=== PATIENT | male | born 1965 | race Caucasian/White ===

== ENCOUNTER 2018-01-02 15:23 | Observation (INO) | payer OTHER ==
[2018-01-02] MEDS ORDERED: Sodium Chloride 0.9% 2.5 ML Syringe FLUSH PRN ×2 (15:29→18:49)
[2018-01-02] MEDS ORDERED: Sodium Chloride 0.9% 10 ML Syringe FLUSH PRN ×2 (15:29→18:49)
[2018-01-02] MEDS ORDERED: Nitroglycerin 2% Oint 1 GM UD Packet TOP ONE (15:29)
[2018-01-02] MEDS ORDERED: Enoxaparin 100 MG/1 ML Syringe SUBCUT ONE (15:29)
[2018-01-02] MEDS ORDERED: Aspirin 81 MG Tab.Chew PO ONE (15:29)
[2018-01-02] MEDS ORDERED: Sodium Chloride 0.9% 1,000 ML IV SCH (15:30)
--- NOTE | 2018-01-02 15:32 | EDM.PDOC ---
ED HPI GENERAL MEDICAL PROBLEM - General Chief Complaint: Respiratory Problem Stated Complaint: TROUBLE BREATHING Time Seen by Provider: 01/02/18 15:26 - History of Present Illness INITIAL COMMENTS - FREE TEXT/NARRATIVE: HISTORY AND PHYSICAL: History of present illness: Patient 52-year-old white male with history of pulmonary embolism in 2013 who states she's been off medications is not on aspirin or anticoagulants and presents today with shortness of breath and chest pain and somewhat intermittent over the last 24 hours and no associated palpitations diaphoresis nausea or vomiting. Review of systems: As per history of present illness and below otherwise all systems reviewed and negative. Past medical history: As per history of present illness and as reviewed below otherwise noncontributory. Surgical history: As per history of present illness and as reviewed below otherwise noncontributory. Social history: No reported history of drug or alcohol abuse. Family history: As per history of present illness and as reviewed below otherwise noncontributory. Physical exam: HEENT: Atraumatic, normocephalic, pupils reactive, negative for conjunctival pallor or scleral icterus, mucous membranes moist, throat clear, neck supple, nontender, trachea midline. Lungs: Clear to auscultation, breath sounds equal bilaterally, chest nontender. Heart: S1S2, regular, negative for clicks, rubs, or JVD. Abdomen: Soft, nondistended, nontender. Negative for masses or hepatosplenomegaly. Negative for costovertebral tenderness. Pelvis: Stable nontender. Genitourinary: Deferred. Rectal: Deferred. Extremities: Atraumatic, negative for cords or calf pain. Neurovascular unremarkable. Neuro: Awake, alert, oriented. Cranial nerves II through XII unremarkable. Cerebellum unremarkable. Motor and sensory unremarkable throughout. Exam nonfocal. Diagnostics: CBC CMP PT/INR troponin d-dimer BNP chest x-ray CT angios chest Therapeutics: IV O2 monitor aspirin 324 mg Lovenox 90 mg subcutaneous Nitropaste 1 inch Impression: #1 chest pain #2 history of pulmonary embolus Definitive disposition and diagnosis as appropriate pending reevaluation and review of above. chest Pain Score (Numeric/FACES): 5 - Related Data Allergies Allergy/AdvReac Type Severity Reaction Status Date / Time Penicillins Allergy Hives Verified 01/02/18 15:25 Home Meds: Home Meds . [No Known Home Meds] 01/02/18 [History] Past Medical History HEENT History: Reports: None Cardiovascular History: Reports: None Respiratory History: Reports: None Gastrointestinal History: Reports: None Genitourinary History: Reports: None Musculoskeletal History: Reports: None Neurological History: Reports: None Psychiatric History: Reports: None Endocrine/Metabolic History: Reports: None Hematologic History: Reports: Other (See Below) Other Hematologic History: DVT Immunologic History: Reports: None Oncologic (Cancer) History: Reports: None Dermatologic History: Reports: None - Past Surgical History Head Surgeries/Procedures: Reports: None HEENT Surgical History: Reports: None Cardiovascular Surgical History: Reports: None Respiratory Surgical History: Reports: None GI Surgical History: Reports: None Male Surgical History: Reports: None Endocrine Surgical History: Reports: None Neurological Surgical History: Reports: None Musculoskeletal Surgical History: Reports: None Oncologic Surgical History: Reports: None Dermatological Surgical History: Reports: None Social & Family History - Family History Family Medical History: Noncontributory - Tobacco Use Smoking Status *Q: Current Every Day Smoker Years of Tobacco use: 32 Packs/Tins Daily: 1 Used Tobacco, but Quit: No Second Hand Smoke Exposure: Yes - Caffeine Use Caffeine Use: Reports: Coffee - Alcohol Use Days Per Week of Alcohol Use: 2 Number of Drinks Per Day: 3 Total Drinks Per Week: 6 - Recreational Drug Use Recreational Drug Use: No Recreational Drug Type: Reports: Marijuana/Hashish Recreational Drug Use Frequency: Weekly ED ROS GENERAL - Review of Systems Review Of Systems: ROS reveals no pertinent complaints other than HPI. ED EXAM, GENERAL - Physical Exam Exam: See Below (See dictation) Course - Vital Signs Last Recorded V/S: Last Vital Signs Temp 36.5 C 01/02/18 15:26 Pulse 84 01/02/18 16:20 Resp 20 01/02/18 16:20 BP 116/79 01/02/18 16:20 Pulse Ox 94 L 01/02/18 16:20 - Orders/Labs/Meds Orders: Active Orders 24 hr Category Date Time Status Cardiac Monitoring [RC] . DIRECTED Care 01/02/18 15:28 Active EKG 12 Lead [EKG Documentation Completion] [RC] STAT Care 01/02/18 15:27 Active EKG Documentation Completion [RC] STAT Care 01/02/18 15:28 Active Oxygen Therapy, ED [RC] ASDIRECTED Care 01/02/18 15:28 Active Pulse Oximetry [RC] ASDIRECTED Care 01/02/18 15:28 Active Ang Chest [CT] Stat Exams 01/02/18 15:29 Taken INFLUENZA A+B AG SCREEN [RM] Stat Lab 01/02/18 17:52 Ordered Sodium Chloride 0.9% [Normal Saline] 1,000 ml Med 01/02/18 15:30 Active IV STAT Sodium Chloride 0.9% [Saline Flush] Med 01/02/18 15:29 Active 10 ml FLUSH ASDIRECTED PRN Sodium Chloride 0.9% [Saline Flush] Med 01/02/18 15:29 Active 2.5 ml FLUSH ASDIRECTED PRN Saline Lock Insert [OM.PC] Stat Oth 01/02/18 15:28 Ordered Medication Orders Sodium Chloride (Normal Saline) 1,000 mls @ 125 mls/hr IV STAT RENE Last Admin: 01/02/18 15:39 Dose: 125 mls/hr Sodium Chloride (Saline Flush) 10 ml FLUSH ASDIRECTED PRN PRN Reason: Keep Vein Open Last Admin: 01/02/18 15:39 Dose: 10 ml Sodium Chloride (Saline Flush) 2.5 ml FLUSH ASDIRECTED PRN PRN Reason: Keep Vein Open Last Admin: 01/02/18 15:39 Dose: 2.5 ml Labs: Laboratory Tests 01/02/18 01/02/18 01/02/18 Range/Units 15:26 15:26 15:26 WBC 9.42 (4.0-11.0) K/uL RBC 5.23 (4.50-5.90) M/uL Hgb 15.9 (13.0-17.0) g/dL Hct 46.8 (38.0-50.0) % MCV 89.5 (80.0-98.0) fL MCH 30.4 (27.0-32.0) pg MCHC 34.0 (31.0-37.0) g/dL RDW Std Deviation 46.6 (28.0-62.0) fl RDW Coeff of Clara 14 (11.0-15.0) % Plt Count 193 (150-400) K/uL MPV 10.30 (7.40-12.00) fL Neut % (Auto) 81.4 H (48.0-80.0) % Lymph % (Auto) 11.1 L (16.0-40.0) % Lea % (Auto) 6.1 (0.0-15.0) % Eos % (Auto) 1.3 (0.0-7.0) % Baso % (Auto) 0.1 (0.0-1.5) % Neut # (Auto) 7.7 H (1.4-5.7) K/uL Lymph # (Auto) 1.1 (0.6-2.4) K/uL Lea # (Auto) 0.6 (0.0-0.8) K/uL Eos # (Auto) 0.1 (0.0-0.7) K/uL Baso # (Auto) 0.0 (0.0-0.1) K/uL Nucleated RBC % 0.0 /100WBC Nucleated RBCs # 0 K/uL INR 1.04 D-Dimer, Quantitative 1.10 H (0.0-0.52) mg/LFEU Sodium 141 (136-148) mmol/L Potassium 3.8 (3.5-5.1) mmol/L Chloride 106 (98-107) mmol/L Carbon Dioxide 22.2 (21.0-32.0) mmol/L BUN 16 (7.0-18.0) mg/dL Creatinine 0.8 (0.8-1.3) mg/dL Est Cr Clr Drug Dosing 139.79 mL/min Estimated GFR (MDRD) > 60.0 ml/min Glucose 109 H (74-106) mg/dL Calcium 9.0 (8.5-10.1) mg/dL Total Bilirubin 0.5 (0.2-1.0) mg/dL AST 20 (15-37) IU/L ALT 16 (14-63) IU/L Alkaline Phosphatase 49 (46-116) U/L Troponin I < 0.050 (0.000-0.056) ng/mL B-Natriuretic Peptide (<100) PG/ML Total Protein 7.2 (6.4-8.2) g/dL Albumin 3.9 (3.4-5.0) g/dL Globulin 3.3 (2.0-3.5) g/dL Albumin/Globulin Ratio 1.2 L (1.3-2.8) 01/02/18 Range/Units 15:26 WBC (4.0-11.0) K/uL RBC (4.50-5.90) M/uL Hgb (13.0-17.0) g/dL Hct (38.0-50.0) % MCV (80.0-98.0) fL MCH (27.0-32.0) pg MCHC (31.0-37.0) g/dL RDW Std Deviation (28.0-62.0) fl RDW Coeff of Clara (11.0-15.0) % Plt Count (150-400) K/uL MPV (7.40-12.00) fL Neut % (Auto) (48.0-80.0) % Lymph % (Auto) (16.0-40.0) % Lea % (Auto) (0.0-15.0) % Eos % (Auto) (0.0-7.0) % Baso % (Auto) (0.0-1.5) % Neut # (Auto) (1.4-5.7) K/uL Lymph # (Auto) (0.6-2.4) K/uL Lea # (Auto) (0.0-0.8) K/uL Eos # (Auto) (0.0-0.7) K/uL Baso # (Auto) (0.0-0.1) K/uL Nucleated RBC % /100WBC Nucleated RBCs # K/uL INR D-Dimer, Quantitative (0.0-0.52) mg/LFEU Sodium (136-148) mmol/L Potassium (3.5-5.1) mmol/L Chloride (98-107) mmol/L Carbon Dioxide (21.0-32.0) mmol/L BUN (7.0-18.0) mg/dL Creatinine (0.8-1.3) mg/dL Est Cr Clr Drug Dosing mL/min Estimated GFR (MDRD) ml/min Glucose (74-106) mg/dL Calcium (8.5-10.1) mg/dL Total Bilirubin (0.2-1.0) mg/dL AST (15-37) IU/L ALT (14-63) IU/L Alkaline Phosphatase (46-116) U/L Troponin I (0.000-0.056) ng/mL B-Natriuretic Peptide 27 (<100) PG/ML Total Protein (6.4-8.2) g/dL Albumin (3.4-5.0) g/dL Globulin (2.0-3.5) g/dL Albumin/Globulin Ratio (1.3-2.8) Meds: Medications Generic Name Dose Route Start Last Admin Trade Name Freq PRN Reason Stop Dose Admin Sodium Chloride 1,000 mls @ 125 mls/hr 01/02/18 15:30 01/02/18 15:39 Normal Saline IV 125 mls/hr STAT RENE Administration Sodium Chloride 10 ml 01/02/18 15:29 01/02/18 15:39 Saline Flush FLUSH 10 ml ASDIRECTED PRN Administration Keep Vein Open Sodium Chloride 2.5 ml 01/02/18 15:29 01/02/18 15:39 Saline Flush FLUSH 2.5 ml ASDIRECTED PRN Administration Keep Vein Open Discontinued Medications Generic Name Dose Route Start Last Admin Trade Name Freq PRN Reason Stop Dose Admin Aspirin 324 mg 01/02/18 15:29 01/02/18 15:37 Aspirin PO 01/02/18 15:30 324 mg ONETIME ONE Administration Enoxaparin Sodium 90 mg 01/02/18 15:29 01/02/18 15:38 Lovenox SUBCUT 01/02/18 15:30 90 mg ONETIME ONE Administration Nitroglycerin 1 gm 01/02/18 15:29 01/02/18 15:38 Nitro-Bid 2% TOP 01/02/18 15:30 1 gm ONETIME ONE Administration Departure - Departure Time of Disposition: 17:53 Disposition: Refer to Observation Condition: Good Clinical Impression: Chest pain - Discharge Information Forms: ED Department Discharge - My Orders Last 24 Hours: My Active Orders 01/02/18 15:27 EKG 12 Lead [EKG Documentation Completion] [RC] STAT 01/02/18 15:28 Cardiac Monitoring [RC] . DIRECTED EKG Documentation Completion [RC] STAT Oxygen Therapy, ED [RC] ASDIRECTED Pulse Oximetry [RC] ASDIRECTED Saline Lock Insert [OM.PC] Stat 01/02/18 15:29 Ang Chest [CT] Stat Sodium Chloride 0.9% [Saline Flush] 10 ml FLUSH ASDIRECTED PRN Sodium Chloride 0.9% [Saline Flush] 2.5 ml FLUSH ASDIRECTED PRN 01/02/18 15:30 Sodium Chloride 0.9% [Normal Saline] 1,000 ml IV STAT 01/02/18 17:52 INFLUENZA A+B AG SCREEN [RM] Stat - Assessment/Plan Last 24 Hours: My Active Orders 01/02/18 15:27 EKG 12 Lead [EKG Documentation Completion] [RC] STAT 01/02/18 15:28 Cardiac Monitoring [RC] . DIRECTED EKG Documentation Completion [RC] STAT Oxygen Therapy, ED [RC] ASDIRECTED Pulse Oximetry [RC] ASDIRECTED Saline Lock Insert [OM.PC] Stat 01/02/18 15:29 Ang Chest [CT] Stat Sodium Chloride 0.9% [Saline Flush] 10 ml FLUSH ASDIRECTED PRN Sodium Chloride 0.9% [Saline Flush] 2.5 ml FLUSH ASDIRECTED PRN 01/02/18 15:30 Sodium Chloride 0.9% [Normal Saline] 1,000 ml IV STAT 01/02/18 17:52 INFLUENZA A+B AG SCREEN [RM] Stat
--- NOTE | 2018-01-02 16:03 | CR ---
EXAMINATION: Portable chest radiograph. HISTORY: Shortness of breath. FINDINGS: The trachea is midline. The cardiomediastinal silhouette is within normal limits. No pulmonary infilt rates, effusions or pneumothorax. Osseous structures appear unremarkable. IMPRESSION: No acute cardiopulmonary process.
[2018-01-02 16:11] LABS: CHLORIDE,CL 106 mmol/L (98-107); SODIUM,NA 141 mmol/L (136-148)
[2018-01-02] MEDS ORDERED: Morphine 4 MG/ML Syringe IVPUSH PRN (18:49)
[2018-01-02] MEDS ORDERED: Acetaminophen 325 MG Tab PO PRN (18:49)
[2018-01-02] MEDS ORDERED: Albuterol/Ipratropium 3.0-0.5 MG/3 ML Neb Soln NEB PRN (18:49)
[2018-01-02] MEDS ORDERED: Enoxaparin 40 MG/0.4 ML Syringe SUBCUT SCH (19:00)
[2018-01-02] MEDS ORDERED: Enoxaparin 100 MG/1 ML Syringe SUBCUT SCH (20:15)
[2018-01-02] MEDS ORDERED: Warfarin Sliding Scale PO SCH (20:15)
[2018-01-02] MEDS ORDERED: Warfarin 5 MG Tab PO ONE (20:45)
--- NOTE | 2018-01-02 23:31 | PCM.HP ---
H&P History of Present Illness - General Date of Service: 01/02/18 Admit Problem/Dx: Admission Diagnosis/Problem Admission Diagnosis/Problem Chest pain Source of Information: Patient, Provider History Limitations: Reports: No Limitations - History of Present Illness Initial Comments - Free Text/Narative: Patient 52 y old man with PMHx of PE in 2013 and later on DVT , on no anticoagulation, presented to hospital due to chest pain that started in the morning associated with some shortness of breath. Chest pain was localized left side of the chest radiating in the left shoulder and patient felt like a pulled muscle. Pain was 6/10 I , described as tightness , worse with breathing , pain is there all the time. He is not on any anticoagulation for the past 5 y because he could not afford the Lovenox. 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 Has cough productive of green phlegm for the past few days chest Pain Score (Numeric/FACES): 5 - Related Data Allergies/Adverse Reactions: Allergies Allergy/AdvReac Type Severity Reaction Status Date / Time Penicillins Allergy Hives Verified 01/02/18 15:25 Home Medications: Home Meds Azithromycin [IJP: Azithromycin] 250 mg PO DAILY #6 tab 01/03/18 [Rx] Warfarin Sliding Scale [Coumadin Sliding Scale] 5 each PO DAILY #30 tablet 01/03 [Rx] Past Medical History HEENT History: Reports: None Cardiovascular History: Reports: None Respiratory History: Reports: None Gastrointestinal History: Reports: None Genitourinary History: Reports: None Musculoskeletal History: Reports: None Neurological History: Reports: None Psychiatric History: Reports: None Endocrine/Metabolic History: Reports: None Hematologic History: Reports: Other (See Below) Other Hematologic History: DVT in left leg in 2010 Immunologic History: Reports: None Oncologic (Cancer) History: Reports: None Dermatologic History: Reports: None - Infectious Disease History Infectious Disease History: Reports: Chicken Pox, Mumps - Past Surgical History Head Surgeries/Procedures: Reports: None HEENT Surgical History: Reports: None Cardiovascular Surgical History: Reports: None Respiratory Surgical History: Reports: None GI Surgical History: Reports: None Male Surgical History: Reports: None Endocrine Surgical History: Reports: None Neurological Surgical History: Reports: None Musculoskeletal Surgical History: Reports: None Oncologic Surgical History: Reports: None Dermatological Surgical History: Reports: None Social & Family History - Family History Family Medical History: Noncontributory - Tobacco Use Smoking Status *Q: Former Smoker Years of Tobacco use: 31 Packs/Tins Daily: 1 Used Tobacco, but Quit: No Second Hand Smoke Exposure: Yes - Caffeine Use Caffeine Use: Reports: Coffee - Alcohol Use Days Per Week of Alcohol Use: 2 Number of Drinks Per Day: 3 Total Drinks Per Week: 6 - Recreational Drug Use Recreational Drug Use: Yes Drug Use in Last 12 Months: Yes Recreational Drug Type: Reports: Marijuana/Hashish Recreational Drug Use Frequency: Socially H&P Review of Systems - Review of Systems: Review Of Systems: See Below General: Reports: No Symptoms HEENT: Reports: No Symptoms Pulmonary: Reports: Shortness of Breath, Cough Cardiovascular: Reports: Chest Pain Gastrointestinal: Reports: No Symptoms Genitourinary: Reports: No Symptoms Musculoskeletal: Reports: No Symptoms Skin: Reports: No Symptoms Psychiatric: Reports: No Symptoms Neurological: Reports: No Symptoms Hematologic/Lymphatic: Reports: No Symptoms Immunologic: Reports: No Symptoms Exam - Exam Exam: See Below - Vital Signs Vital Signs: Last Vital Signs Temp 100.2 F 01/02/18 20:00 Pulse 69 01/02/18 20:00 Resp 19 01/02/18 20:00 BP 104/69 01/02/18 20:00 Pulse Ox 92 L 01/02/18 20:00 Weight: 203 lb 0.732 oz - Exam General: Alert, Oriented HEENT: Conjunctiva Clear, EACs Clear, Mucosa Moist & [place] Neck: Supple, Trachea Midline Lungs: Clear to Auscultation, Normal Respiratory Effort Cardiovascular: Regular Rate, Regular Rhythm, Normal S1, Normal S2 GI/Abdominal Exam: Normal Bowel Sounds, Soft, Non-Tender, No Organomegaly, No Distention, No Abnormal Bruit Back Exam: Normal Inspection Extremities: Normal Inspection Skin: Warm, Dry Neurological: Cranial Nerves Intact Neuro Extensive - Mental Status: Alert, Oriented x3 Neuro Extensive - Motor, Sensory, Reflexes: CN II-XII Intact Psychiatric: Alert, Normal Affect - Patient Data Lab Results Last 24 hrs: Laboratory Results - last 24 hr 01/02/18 01/02/18 01/02/18 Range/Units 15:26 15:26 15:26 WBC 9.42 (4.0-11.0) K/uL RBC 5.23 (4.50-5.90) M/uL Hgb 15.9 (13.0-17.0) g/dL Hct 46.8 (38.0-50.0) % MCV 89.5 (80.0-98.0) fL MCH 30.4 (27.0-32.0) pg MCHC 34.0 (31.0-37.0) g/dL RDW Std Deviation 46.6 (28.0-62.0) fl RDW Coeff of Clara 14 (11.0-15.0) % Plt Count 193 (150-400) K/uL MPV 10.30 (7.40-12.00) fL Neut % (Auto) 81.4 H (48.0-80.0) % Lymph % (Auto) 11.1 L (16.0-40.0) % [place] % (Auto) 6.1 (0.0-15.0) % Eos % (Auto) 1.3 (0.0-7.0) % Baso % (Auto) 0.1 (0.0-1.5) % Neut # (Auto) 7.7 H (1.4-5.7) K/uL Lymph # (Auto) 1.1 (0.6-2.4) K/uL [place] # (Auto) 0.6 (0.0-0.8) K/uL Eos # (Auto) 0.1 (0.0-0.7) K/uL Baso # (Auto) 0.0 (0.0-0.1) K/uL Nucleated RBC % 0.0 /100WBC Nucleated RBCs # 0 K/uL INR 1.04 D-Dimer, Quantitative 1.10 H (0.0-0.52) mg/LFEU Sodium 141 (136-148) mmol/L Potassium 3.8 (3.5-5.1) mmol/L Chloride 106 (98-107) mmol/L Carbon Dioxide 22.2 (21.0-32.0) mmol/L BUN 16 (7.0-18.0) mg/dL Creatinine 0.8 (0.8-1.3) mg/dL Est Cr Clr Drug Dosing 139.79 mL/min Estimated GFR (MDRD) > 60.0 ml/min Glucose 109 H (74-106) mg/dL Calcium 9.0 (8.5-10.1) mg/dL Total Bilirubin 0.5 (0.2-1.0) mg/dL AST 20 (15-37) IU/L ALT 16 (14-63) IU/L Alkaline Phosphatase 49 (46-116) U/L Troponin I < 0.050 (0.000-0.056) ng/mL B-Natriuretic Peptide (<100) PG/ML Total Protein 7.2 (6.4-8.2) g/dL Albumin 3.9 (3.4-5.0) g/dL Globulin 3.3 (2.0-3.5) g/dL Albumin/Globulin Ratio 1.2 L (1.3-2.8) 01/02/18 01/02/18 01/02/18 Range/Units 15:26 20:23 20:23 WBC (4.0-11.0) K/uL RBC (4.50-5.90) M/uL Hgb (13.0-17.0) g/dL Hct (38.0-50.0) % MCV (80.0-98.0) fL MCH (27.0-32.0) pg MCHC (31.0-37.0) g/dL RDW Std Deviation (28.0-62.0) fl RDW Coeff of Clara (11.0-15.0) % Plt Count (150-400) K/uL MPV (7.40-12.00) fL Neut % (Auto) (48.0-80.0) % Lymph % (Auto) (16.0-40.0) % [place] % (Auto) (0.0-15.0) % Eos % (Auto) (0.0-7.0) % Baso % (Auto) (0.0-1.5) % Neut # (Auto) (1.4-5.7) K/uL Lymph # (Auto) (0.6-2.4) K/uL [place] # (Auto) (0.0-0.8) K/uL Eos # (Auto) (0.0-0.7) K/uL Baso # (Auto) (0.0-0.1) K/uL Nucleated RBC % /100WBC Nucleated RBCs # K/uL INR 1.06 D-Dimer, Quantitative (0.0-0.52) mg/LFEU Sodium (136-148) mmol/L Potassium (3.5-5.1) mmol/L Chloride (98-107) mmol/L Carbon Dioxide (21.0-32.0) mmol/L BUN (7.0-18.0) mg/dL Creatinine (0.8-1.3) mg/dL Est Cr Clr Drug Dosing mL/min Estimated GFR (MDRD) ml/min Glucose (74-106) mg/dL Calcium (8.5-10.1) mg/dL Total Bilirubin (0.2-1.0) mg/dL AST (15-37) IU/L ALT (14-63) IU/L Alkaline Phosphatase (46-116) U/L Troponin I < 0.050 (0.000-0.056) ng/mL B-Natriuretic Peptide 27 (<100) PG/ML Total Protein (6.4-8.2) g/dL Albumin (3.4-5.0) g/dL Globulin (2.0-3.5) g/dL Albumin/Globulin Ratio (1.3-2.8) Result Diagrams: 01/02/18 15:26 01/02/18 15:26 Kapil Results Last 24 hrs: Microbiology 01/02/18 17:55 Influenza Type A Antigen Screen - Final Nasopharyngeal Swab NEGATIVE INFLUENZA A VIRUS AG Influenza Type B Antigen Screen - Final NEGATIVE INFLUENZA B VIRUS AG Imaging Impressions Last 24 hrs: CtPA show no PE , thickening of a bronchial wall. EKG INTERPRETATION Rhythm: NSR ST-T: Elevated - Problem List (1) Bronchitis SNOMED Code(s): 06163203 ICD Code: J40 - BRONCHITIS, NOT SPECIFIED ACUTE OR CHRONIC Status: Acute (2) Chest pain SNOMED Code(s): 17639540 ICD Code: R07.9 - CHEST PAIN, UNSPECIFIED Status: Acute (3) Tobacco abuse disorder SNOMED Code(s): 441443814 ICD Code: Z72.0 - TOBACCO USE Status: Acute (4) Tobacco abuse counseling SNOMED Code(s): 518294542, 306620519, 287407159 ICD Code: Z71.6 - TOBACCO ABUSE COUNSELING Status: Acute (5) History of pulmonary embolus (PE) SNOMED Code(s): 245599901 ICD Code: Z86.711 - PERSONAL HISTORY OF PULMONARY EMBOLISM Status: Acute (6) History of DVT in adulthood SNOMED Code(s): 700271396 ICD Code: Z86.718 - PERSONAL HISTORY OF OTHER VENOUS THROMBOSIS AND EMBOLISM Status: Acute Problem List Initiated/Reviewed/Updated: Yes Orders Last 24hrs: Active Orders 24 hr Category Date Time Status Patient Status [ADT] Routine ADT 01/02/18 18:49 Active Patient Status [ADT] Stat ADT 01/02/18 17:53 Active Cardiac Monitoring [RC] Q8H Care 01/02/18 15:28 Active RT Aerosol Therapy [RC] ASDIRECTED Care 01/02/18 18:53 Active Telemetry Monitoring [Cardiac Monitoring] [RC] . Care 01/02/18 18:04 Active DIRECTED Up ad Dolly [RC] ASDIRECTED Care 01/02/18 18:49 Active VTE/DVT Education [RC] PER UNIT ROUTINE Care 01/02/18 18:49 Active Vital Signs [RC] Q4H Care 01/02/18 18:49 Active 2 Gram Sodium Diet [DIET] Diet 01/02/18 Dinner Active Ang Chest [CT] Stat Exams 01/02/18 15:29 Taken INFLUENZA A+B AG SCREEN [RM] Stat Lab 01/02/18 17:55 Ordered INR,PT,PROTHROMBIN TIME [COAG] Routine Lab 01/03/18 05:00 Ordered TROPONIN I [CHEM] Routine Lab 01/03/18 03:00 Ordered Acetaminophen [Tylenol] Med 01/02/18 18:49 Active 650 mg PO Q4H PRN Albuterol/Ipratropium [DuoNeb 3.0-0.5 MG/3 ML] Med 01/02/18 18:49 Active 3 ml NEB Q4HRRT PRN Enoxaparin [Lovenox] Med 01/03/18 03:00 Active 90 mg SUBCUT Q12H Morphine Med 01/02/18 18:49 Active 2 mg IVPUSH Q2H PRN Sodium Chloride 0.9% [Normal Saline] 1,000 ml Med 01/02/18 15:30 Active IV STAT Sodium Chloride 0.9% [Saline Flush] Med 01/02/18 15:29 Active 10 ml FLUSH ASDIRECTED PRN Sodium Chloride 0.9% [Saline Flush] Med 01/02/18 18:49 Active 10 ml FLUSH ASDIRECTED PRN Sodium Chloride 0.9% [Saline Flush] Med 01/02/18 15:29 Active 2.5 ml FLUSH ASDIRECTED PRN Sodium Chloride 0.9% [Saline Flush] Med 01/02/18 18:49 Active 2.5 ml FLUSH ASDIRECTED PRN Warfarin Sliding Scale [Coumadin Sliding Scale] Med 01/02/18 20:15 Pending 5 each PO .Pharmacy To Dose Peripheral IV Insertion Adult [OM.PC] Routine Oth 01/02/18 18:49 Ordered Saline Lock Insert [OM.PC] Stat Oth 01/02/18 15:28 Ordered Resuscitation Status Routine Resus Stat 01/02/18 18:49 Ordered Medication Orders Acetaminophen (Tylenol) 650 mg PO Q4H PRN PRN Reason: Pain (Mild 1-3)/fever Albuterol/Ipratropium (Duoneb 3.0-0.5 Mg/3 Ml) 3 ml NEB Q4HRRT PRN PRN Reason: Shortness Of Breath/wheezing Enoxaparin Sodium (Lovenox) 90 mg 1 mg/kg (90 mg) SUBCUT Q12H RENE Sodium Chloride (Normal Saline) 1,000 mls @ 125 mls/hr IV STAT RENE Last Admin: 01/02/18 15:39 Dose: 125 mls/hr Morphine Sulfate (Morphine) 2 mg IVPUSH Q2H PRN PRN Reason: Pain (severe 7-10) Stop: 01/03/18 18:52 Sodium Chloride (Saline Flush) 10 ml FLUSH ASDIRECTED PRN PRN Reason: Keep Vein Open Last Admin: 01/02/18 15:39 Dose: 10 ml Sodium Chloride (Saline Flush) 2.5 ml FLUSH ASDIRECTED PRN PRN Reason: Keep Vein Open Last Admin: 01/02/18 15:39 Dose: 2.5 ml Sodium Chloride (Saline Flush) 10 ml FLUSH ASDIRECTED PRN PRN Reason: Keep Vein Open Sodium Chloride (Saline Flush) 2.5 ml FLUSH ASDIRECTED PRN PRN Reason: Keep Vein Open Warfarin Sodium (Coumadin Sliding Scale) 5 each PO .Pharmacy To Dose RENE Assessment/Plan Comment:: A/P CHEST PAIN atypical R/O ACS -will admit patient to telemetry , f/up cardiac enzymes , aspirin 325 mg po daily , lipid profile , hemoglobin A1c History of PE and DVD- start Lovenox 1mg/kg q12h , start Coumadin 5 mg po daily , social work referral for patient to receive medical insurance Patient needs to be on lifelong anticoagulation Bronchitis- probable from chronic tobacco abuse - will start patient on azithromycin 500 mg po daily for 3 days , cough syrup Tobacco abuse- patient was counseled for more than 5 minutes to stop smoking
[2018-01-03] MEDS ORDERED: Enoxaparin 100 MG/1 ML Syringe SUBCUT SCH (03:00)
--- NOTE | 2018-01-03 09:18 | CT ---
EXAM DATE: 01/02/18 PATIENT'S AGE: 52 Patient: MONROE FIELDS Facility: [place], [place] Site . Site : 1965 Study: CT Chest Angio [id number]/18/2018 5:10:07 PM Ordering Physician: Eliz Liao Final Report: HISTORY: Shortness of breath, chest pain and chills. TECHNIQUE: The chest was scanned using helical technique at 1 mm after 50 cc of Isovue- 370. Sagittal and coronal reconstructions were performed. FINDINGS: Existent and ronan: The thyroid is unremarkable. Multiple small mediastinal lymph nodes are present. No pathologic mediastinal or hilar lymphadenopathy is seen. Cardiovascular structures: No pulmonary embolus identified. The thoracic aorta is normal in caliber. No dissection. The heart is normal in size. No pericardial effusion. Lungs and pleura: No consolidation is seen. Dependent atelectasis in the posterior lungs. An azygos lobe is present. No pleural effusion. The trachea and major bronchi are patent. Mild bronchial wall thickening is present. Chest wall: No pathologic axillary lymphadenopathy. No chest wall mass. Upper abdomen: The spleen is enlarged at 15.5 cm AP diameter. A splenule is present. The bones are normal. The visualized pancreatic parenchyma is unremarkable. Osseous structures: Vertebral body heights are maintained. Degenerative changes of the discs. IMPRESSION: 1. No pulmonary embolus is identified. 2. Thoracic aorta is normal in caliber and free of dissection. 3. Mild dependent atelectasis in the posterior lungs. There is mild bronchial wall thickening in the lower lungs suggesting inflammation or bronchitis. 4. Splenomegaly. Dictated by Scarlet Billingsley MD @ 01/02/2018 5:44:55 PM Please note that all CT scans at this facility use dose modulation, iterative reconstruction, and/or weight-based dosing when appropriate to reduce radiation dose to as low as reasonably achievable. Dictated by: Scarlet Billingsley MD @ 01/02/2018 17:47:47 (Electronic Signature) Report Signed by Proxy. [facility]
[2018-01-03 09:40] VITALS: BP 122/70
--- NOTE | 2018-01-04 16:54 | PCM.DCSUM1 ---
Discharge Summary - Hospital Course Free Text/Narrative:: Patient 52 y old man with past medical history of blood cloths presented to hospital because of chest pain that started in the morning , pleuritic that felt like a pulled muscle . Pain was there all the time , 5-6/10 intensity , radiating in the left shoulder .CTPA done in [place] was negative for acute PE but showed bronchial thickening . Patient had PE in the past and later on he had DVT and he is supposed to be on lifelong anticoagulation but for the past 5 years he was off anticoagulation because he could not afford it. He is a heavy smoker and has cough productive of green phlegm and occasional wheezing. He was admitted in the hospital with the diagnosis of chest pain rule out ACS , had 3 sets of cardiac enzymes negative and he was started on lovenox 1 mg /kg q12 h and coumadin 5 mg po daily , f/up with [facility].For bronchitis patient was given azithromycin po . - Discharge Data Discharge Date: 01/03/18 Discharge Disposition: Home, Self-Care 01 Condition: Fair - Discharge Diagnosis/Problem(s) (1) Bronchitis SNOMED Code(s): 75356149 ICD Code: J40 - BRONCHITIS, NOT SPECIFIED ACUTE OR CHRONIC Status: Acute (2) Chest pain SNOMED Code(s): 34279473 ICD Code: R07.9 - CHEST PAIN, UNSPECIFIED Status: Acute (3) Tobacco abuse disorder SNOMED Code(s): 618069151 ICD Code: Z72.0 - TOBACCO USE Status: Acute (4) Tobacco abuse counseling SNOMED Code(s): 255719412, 978451448, 817740083 ICD Code: Z71.6 - TOBACCO ABUSE COUNSELING Status: Acute (5) History of pulmonary embolus (PE) SNOMED Code(s): 248011108 ICD Code: Z86.711 - PERSONAL HISTORY OF PULMONARY EMBOLISM Status: Acute (6) History of DVT in adulthood SNOMED Code(s): 105716589 ICD Code: Z86.718 - PERSONAL HISTORY OF OTHER VENOUS THROMBOSIS AND EMBOLISM Status: Acute - Patient Instructions Diet: Heart Healthy Diet Activity: As Tolerated Driving: May Drive Today Showering/Bathing: May Shower Notify Provider of: Fever, Increased Pain, Nausea and/or Vomiting - Discharge Plan Prescriptions/Med Rec: Azithromycin [IJP: Azithromycin] 250 mg PO DAILY #6 tab Warfarin Sliding Scale [Coumadin Sliding Scale] 5 each PO DAILY #30 tablet Home Medications: Home Meds Azithromycin [IJP: Azithromycin] 250 mg PO DAILY #6 tab 01/03/18 [Rx] Warfarin Sliding Scale [Coumadin Sliding Scale] 5 each PO DAILY #30 tablet 01/03 [Rx] Patient Handouts: Exercise Stress Echocardiogram, Care After, [id number], Exercise Stress Electrocardiogram, [id number], Warfarin tablets, Azithromycin tablets, Nonspecific Chest Pain, [id number] Referrals: Ollie Pinedo MD [Resident] - 01/14/18 2:30 pm - Discharge Summary/Plan Comment DC Time >30 min.: Yes - General Info Date of Service: 01/03/18 Admission Dx/Problem (Free Text: Admission Diagnosis/Problem Admission Diagnosis/Problem Chest pain - Review of Systems General: Reports: No Symptoms HEENT: Reports: No Symptoms Pulmonary: Reports: Cough, Sputum Cardiovascular: Reports: No Symptoms Gastrointestinal: Reports: No Symptoms Genitourinary: Reports: No Symptoms Musculoskeletal: Reports: No Symptoms Skin: Reports: No Symptoms Neurological: Reports: No Symptoms Psychiatric: Reports: No Symptoms - Patient Data Vitals - Most Recent: Last Vital Signs Temp 99.0 F 01/03/18 04:00 Pulse 78 01/03/18 08:00 Resp 16 01/03/18 08:00 BP 122/70 01/03/18 08:00 Pulse Ox 95 01/03/18 08:00 Weight - Most Recent: 203 lb 0.732 oz Med Orders - Current: Current Medications Discontinued Medications Acetaminophen (Tylenol) 650 mg PO Q4H PRN PRN Reason: Pain (Mild 1-3)/fever Albuterol/Ipratropium (Duoneb 3.0-0.5 Mg/3 Ml) 3 ml NEB Q4HRRT PRN PRN Reason: Shortness Of Breath/wheezing Aspirin (Aspirin) 324 mg PO ONETIME ONE Stop: 01/02/18 15:30 Last Admin: 01/02/18 15:37 Dose: 324 mg Enoxaparin Sodium (Lovenox) 90 mg SUBCUT ONETIME ONE Stop: 01/02/18 15:30 Last Admin: 01/02/18 15:38 Dose: 90 mg Enoxaparin Sodium (Lovenox) 40 mg SUBCUT Q24H [facility] Last Admin: 01/02/18 20:46 Dose: Not Given Enoxaparin Sodium (Lovenox) 90 mg 1 mg/kg (90 mg) SUBCUT Q12H [facility] Enoxaparin Sodium (Lovenox) 90 mg 1 mg/kg (90 mg) SUBCUT Q12H [facility] Last Admin: 01/03/18 03:16 Dose: 90 mg Sodium Chloride (Normal Saline) 1,000 mls @ 125 mls/hr IV STAT [facility] Last Infusion: 01/03/18 00:03 Dose: Infused Morphine Sulfate (Morphine) 2 mg IVPUSH Q2H PRN PRN Reason: Pain (severe 7-10) Stop: 01/03/18 18:52 Nitroglycerin (Nitro-Bid 2%) 1 gm TOP ONETIME ONE Stop: 01/02/18 15:30 Last Admin: 01/02/18 15:38 Dose: 1 gm Sodium Chloride (Saline Flush) 10 ml FLUSH ASDIRECTED PRN PRN Reason: Keep Vein Open Last Admin: 01/02/18 15:39 Dose: 10 ml Sodium Chloride (Saline Flush) 2.5 ml FLUSH ASDIRECTED PRN PRN Reason: Keep Vein Open Last Admin: 01/02/18 15:39 Dose: 2.5 ml Sodium Chloride (Saline Flush) 10 ml FLUSH ASDIRECTED PRN PRN Reason: Keep Vein Open Sodium Chloride (Saline Flush) 2.5 ml FLUSH ASDIRECTED PRN PRN Reason: Keep Vein Open Warfarin Sodium (Coumadin Sliding Scale) 5 each PO .Pharmacy To Dose [facility] Warfarin Sodium (Coumadin) 5 mg PO ONETIME ONE Stop: 01/02/18 20:46 Last Admin: 01/02/18 21:17 Dose: 5 mg - Exam General: Reports: Alert, Oriented HEENT: Reports: Pupils Equal, Pupils Reactive Neck: Reports: Supple, Trachea Midline, No JVD Lungs: Reports: Clear to Auscultation, Normal Respiratory Effort Cardiovascular: Reports: Regular Rate, Regular Rhythm, No Murmurs GI/Abdominal Exam: Normal Bowel Sounds, Soft, Non-Tender, No Organomegaly Extremities: Normal Inspection Skin: Reports: Warm, Dry Wound/Incisions: Reports: Healing Well Neurological: Reports: No New Focal Deficit Psy/Mental Status: Reports: Alert, Normal Affect, Normal Mood
== END 2018-01-03 10:30 | disposition home or self-care (01) ==
LOC: MW.ED 15:23 → MW.MS 17:53
PROVIDERS: ADMIT Internal Medicine; ATTEND Internal Medicine
DX: R07.89 Other chest pain (principal); J40 Bronchitis, not specified as acute or chronic; F17.210 Nicotine dependence, cigarettes, uncomplicated; Z79.01 Long term (current) use of anticoagulants; Z86.711 Personal history of pulmonary embolism; Z86.718 Personal history of other venous thrombosis and embolism; Z79.899 Other long term (current) drug therapy; Z88.0 Allergy status to penicillin
CPT/HCPCS: 36415; 71045; 71275; 80053; 83880; 84484; 85025; 85379; 85610; 87804; 93005; 96360; 96361; 96372; 99285; A9270; J1650; J7040; G0378

== ENCOUNTER 2020-07-23 03:09 | Inpatient (IN) | payer MEDICAID ==
[2020-07-23 03:59] LABS: BLOOD UREA NITROGEN,BUN 21 mg/dL (7.0-18.0); CARBON DIOXIDE,CO2 26.2 mmol/L (21.0-32.0); CHLORIDE,CL 103 mmol/L (98-107); GLUCOSE RANDOM 119 mg/dL (74-106); POTASSIUM,K 4.6 mmol/L (3.5-5.1); SODIUM,NA 139 mmol/L (136-148)
--- NOTE | 2020-07-23 05:07 | US ---
INDICATION: Right leg pain TECHNIQUE: Ultrasound venous duplex lower extremity bilateral. Compression venous exam was performed using zarate-scale, color Doppler, and spectral Doppler imaging. COMPARISON: None. FINDINGS: On the left there is echogenic thrombus throughout the left lower extremity at the common femoral vein extending to the femoral vein, popliteal vein, posterior tibial and anterior tibial veins. These are all noncompressible. Similar findings are present on the right with extensive echogenic material within the veins which are expanded extending from the common femoral through the femoral and the popliteal posterior tibial and anterior tibial veins. IMPRESSION: Extensive occlusive acute deep venous thrombosis involving the length of the bilateral lower extremities from the common femoral vein into the calf as above. Results called to Dr. Murcia at 0503 on 07/23/2020 Dictated by Buddy Lopez MD @ Jul 23 2020 4:59AM Signed by Dr. Buddy Lopez @ Jul 23 2020 5:04AM
[2020-07-23] MEDS ORDERED: Enoxaparin 150 MG/1 ML Syringe SUBCUT STA (05:25)
--- NOTE | 2020-07-23 05:47 | EDM.PDOC ---
<Rodrigue Flores - Last Filed: 07/23/20 09:47> ED HPI GENERAL MEDICAL PROBLEM - General Chief Complaint: Lower Extremity Injury/Pain Stated Complaint: BLOOD CLOTS IN RIGHT LEG Time Seen by Provider: 07/23/20 03:12 - Related Data Allergies Allergy/AdvReac Type Severity Reaction Status Date / Time Penicillins Allergy Hives Verified 07/23/20 09:10 Home Meds: Home Meds . [No Known Home Meds] 07/23/20 [History] Review of Systems - Review of Systems Review Of Systems: Comprehensive ROS is negative, except as noted in HPI. Departure - Departure Time of Disposition: 08:35 Disposition: Admitted As Inpatient 66 Condition: Good Clinical Impression: Pulmonary embolism - Discharge Information - Assessment/Plan Plan: Patient admitted with PE, otherwise hemodynamically stable and has no chest pain or SOB. received lovenox here. evidence of mild right heart strain on CT. 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 The patient states that for a couple of days now he has been experiencing pain in his right lower extremity. He states that he felt a pop and thought it was likely a muscle strain however the pain has increased. He states that this feels similar to when he had a DVT in his left lower extremity. He states that he had an extensive work-up in [place] as his last DVT of his lower extremity was unprovoked and then he had a recurrence of this DVT when he moved to [place]. He denies any numbness, tingling, or weakness. He denies any recent travel, recent surgery. He denies any injury to this right lower extremity. He denies any rash or skin changes. REVIEW OF SYSTEMS: Constitutional: Denies fever, chills. Eyes: Denies eye pain Ears, Nose, Mouth, & Throat: Denies earache Cardiovascular: Denies chest pain Respiratory: Denies shortness of breath Gastrointestinal: Denies Nausea, vomiting, diarrhea, hematochezia. Genitourinary: Denies hematuria MSK: Positive for right lower extremity pain Neurological: Denies blurred vision, numbness, tingling Psychiatric: Denies depression PAST MEDICAL HISTORY: As per history of present illness and as reviewed below otherwise noncontributory. SURGICAL HISTORY: As per history of present illness and as reviewed below otherwise noncontributory. SOCIAL HISTORY: As per history of present illness and as reviewed below otherwise noncontributory. FAMILY HISTORY: As per history of present illness and as reviewed below otherwise noncontributory. EXAMINATION OF ORGAN SYSTEMS/BODY AREAS: Constitutional: Blood pressure was 134/89, heart rate 94, respiratory rate 18 with an oxygen saturation 97% on room air. Temperature 36.1 General: Overall well-appearing man who is in no acute distress Psychiatric: Appropriate mood and affect. Eyes: No scleral icterus or conjunctival erythema ENMT: Moist mucous membranes. No pharyngeal erythema Cardiovascular: Regular, rate, and rhythm. No gallops, murmurs, or rubs. Bilateral upper and lower extremity pulses are symmetric and intact. There is no obvious peripheral edema. No JVD. Respiratory: Lungs clear to auscultation bilaterally. No wheezes, rales, or rhonchi. Gastrointestinal: Soft, non-tender, non-distended. Normoactive bowel sounds Genitourinary: No suprapubic tenderness Musculoskeletal: Normal range of motion. There is tenderness to palpation along the posterior calf and medial thigh on the right lower extremity. The left lower extremity is nontender. There does not appear to be any swelling. No deformity Skin: No lesions or abrasions. Neurological: Alert, GCS 15 distal sensation is intact. MEDICAL DECISION MAKING AND COURSE IN THE ED WITH INTERPRETATION/REVIEW OF DIAGNOSTIC STUDIES: This is a 55-year-old man with a past medical history of prior unprovoked DVT with an extensive work-up who comes to the emergency department with right lower extremity pain which is similar to his left lower extremity DVT in the past who is neurovascularly intact. At this time I did perform a bedside ultrasound to evaluate for popliteal DVT. On my bedside ultr asound there did appear to be clot with a noncompressible vein in the popliteal region. Therefore at this time will obtain duplex ultrasonography of bilateral lower extremities. Will obtain basic labs including CBC, BMP, and coags. Laboratory: CBC reveals a leukocytosis of 13.0 and thrombocytopenia at 149. Coags are within normal limits. BMP reveals no abnormality except for hyperglycemia at 119. The radiological images were viewed by myself along with reading the report from the radiologist. Bilateral lower extremity venous duplex reveals evidence of extensive acute DVT involving the length of the bilateral lower extremity from the common femoral vein into the calf. Given the degree of clot burden on ultrasonography and given that the patient is tachycardiac I am concerned about the possibility of extension of these clots into the IVC versus pulmonary embolism. We decided at this time that we would obtain CT PE and CTA of the abdomen to evaluate. I did provide the patient with Lovenox subcutaneously. Also obtain a coronavirus swab as this patient will likely need admission or transfer. COVID-19 is negative. Twelve-lead EKG interpreted by myself. Normal sinus rhythm at a rate of 80beats per minute. Normal axis. [place] interval is 157ms. QRS duration is 101ms. ST segments are normal without elevations or depressions. No Q waves present. Hypertrophy not noted. No prior EKGs. Interpretation: Normal sinus rhythm [facility]POSITION: [facility] final read of CT PE and disposition CONDITION: Serious PROCEDURES: None FINAL IMPRESSION(S)/DIAGNOSES: 1. Acute bilateral lower extremity DVT Fede Murcia M.D. right leg Pain Score (Numeric/FACES): 9 Past Medical History HEENT History: Reports: None Cardiovascular History: Reports: None Respiratory History: Reports: None Gastrointestinal History: Reports: None Genitourinary History: Reports: None Musculoskeletal History: Reports: None Neurological History: Reports: None Psychiatric History: Reports: None Endocrine/Metabolic History: Reports: None Insulin Pump Model and Handle And Vent Machine Operator: None Hematologic History: Reports: Other (See Below) Other Hematologic History: DVT in left leg in 2010 Immunologic History: Reports: None Oncologic (Cancer) History: Reports: None Dermatologic History: Reports: None - Infectious Disease History Infectious Disease History: Reports: None - Past Surgical History Head Surgeries/Procedures: Reports: None HEENT Surgical History: Reports: None Cardiovascular Surgical History: Reports: None Respiratory Surgical History: Reports: None GI Surgical History: Reports: None Male Surgical History: Reports: None Endocrine Surgical History: Reports: None Neurological Surgical History: Reports: None Musculoskeletal Surgical History: Reports: None Oncologic Surgical History: Reports: None Dermatological Surgical History: Reports: None Social & Family History - Family History Family Medical History: Noncontributory - Tobacco Use Tobacco Use Status *Q: Current Every Day Tobacco User Years of Tobacco use: 30 Packs/Tins Daily: 0.5 - Caffeine Use Caffeine Use: Reports: Coffee - Recreational Drug Use Recreational Drug Use: No Review of Systems - Review of Systems Review Of Systems: See Below ED EXAM, GENERAL - Physical Exam Exam: See Below Course - Vital Signs Last Recorded V/S: Last Vital Signs Temp 36.3 C 07/23/20 16:00 Pulse 88 07/23/20 16:00 Resp 22 H 07/23/20 16:00 BP 113/80 07/23/20 16:00 Pulse Ox 96 07/23/20 16:00 - Orders/Labs/Meds Orders: Active Orders 24 hr Category Date Time Status CTA Abd Pelv w Cont [CT] Stat Exams 07/23/20 04:34 Taken Medication Orders Acetaminophen (Tylenol) 650 mg PO Q4H PRN PRN Reason: Pain (Mild 1-3)/fever Enoxaparin Sodium (Lovenox) 120 mg SUBCUT Q12H [facility] Ondansetron HCl (Zofran) 4 mg IVPUSH Q4H PRN PRN Reason: Nausea Warfarin Sodium (Coumadin Ask) 1 each PO DAILY@1400 RENE Last Admin: 07/23/20 14:11 Dose: Not Given Documented by: JAH Labs: Laboratory Tests 07/23/20 07/23/20 07/23/20 Range/Units 03:40 03:40 03:40 WBC 13.00 H (4.0-11.0) K/uL RBC 4.84 (4.50-5.90) M/uL Hgb 14.8 (13.0-17.0) g/dL Hct 43.7 (38.0-50.0) % MCV 90.3 (80.0-98.0) fL MCH 30.6 (27.0-32.0) pg MCHC 33.9 (31.0-37.0) g/dL RDW Std Deviation 45.5 (28.0-62.0) fl RDW Coeff of Clara 14 (11.0-15.0) % Plt Count 149 L (150-400) K/uL MPV 10.60 (7.40-12.00) fL Neut % (Auto) 70.9 (48.0-80.0) % Lymph % (Auto) 17.8 (16.0-40.0) % Mills % (Auto) 7.1 (0.0-15.0) % Eos % (Auto) 4.0 (0.0-7.0) % Baso % (Auto) 0.2 (0.0-1.5) % Neut # (Auto) 9.2 H (1.4-5.7) K/uL Lymph # (Auto) 2.3 (0.6-2.4) K/uL Mills # (Auto) 0.9 H (0.0-0.8) K/uL Eos # (Auto) 0.5 (0.0-0.7) K/uL Baso # (Auto) 0.0 (0.0-0.1) K/uL Nucleated RBC % 0.0 /100WBC Nucleated RBCs # 0 K/uL INR 1.05 Sodium 139 (136-148) mmol/L Potassium 4.6 (3.5-5.1) mmol/L Chloride 103 (98-107) mmol/L Carbon Dioxide 26.2 (21.0-32.0) mmol/L BUN 21 H (7.0-18.0) mg/dL Creatinine 1.1 (0.8-1.3) mg/dL Est Cr Clr Drug Dosing 100.56 mL/min Estimated GFR (MDRD) > 60.0 ml/min Glucose 119 H (74-106) mg/dL Calcium 8.9 (8.5-10.1) mg/dL SARS-CoV-2 RNA (TUYET) (NEGATIVE) 07/23/20 Range/Units 03:40 WBC (4.0-11.0) K/uL RBC (4.50-5.90) M/uL Hgb (13.0-17.0) g/dL Hct (38.0-50.0) % MCV (80.0-98.0) fL MCH (27.0-32.0) pg MCHC (31.0-37.0) g/dL RDW Std Deviation (28.0-62.0) fl RDW Coeff of Clara (11.0-15.0) % Plt Count (150-400) K/uL MPV (7.40-12.00) fL Neut % (Auto) (48.0-80.0) % Lymph % (Auto) (16.0-40.0) % Mills % (Auto) (0.0-15.0) % Eos % (Auto) (0.0-7.0) % Baso % (Auto) (0.0-1.5) % Neut # (Auto) (1.4-5.7) K/uL Lymph # (Auto) (0.6-2.4) K/uL Mills # (Auto) (0.0-0.8) K/uL Eos # (Auto) (0.0-0.7) K/uL Baso # (Auto) (0.0-0.1) K/uL Nucleated RBC % /100WBC Nucleated RBCs # K/uL INR Sodium (136-148) mmol/L Potassium (3.5-5.1) mmol/L Chloride (98-107) mmol/L Carbon Dioxide (21.0-32.0) mmol/L BUN (7.0-18.0) mg/dL Creatinine (0.8-1.3) mg/dL Est Cr Clr Drug Dosing mL/min Estimated GFR (MDRD) ml/min Glucose (74-106) mg/dL Calcium (8.5-10.1) mg/dL SARS-CoV-2 RNA (TUYET) NEGATIVE (NEGATIVE) Meds: Medications Generic Name Dose Route Start Last Admin Trade Name Freq PRN Reason Stop Dose Admin Acetaminophen 650 mg 07/23/20 09:05 Tylenol PO Q4H PRN Pain (Mild 1-3)/fever Enoxaparin Sodium 120 mg 07/23/20 18:00 Lovenox SUBCUT Q12H RENE Ondansetron HCl 4 mg 07/23/20 09:05 Zofran IVPUSH Q4H PRN Nausea Warfarin Sodium 1 each 07/23/20 14:00 07/23/20 14:11 Coumadin Ask PO Not Given DAILY@1400 RENE Discontinued Medications Generic Name Dose Route Start Last Admin Trade Name Freq PRN Reason Stop Dose Admin Enoxaparin Sodium 120 mg 07/23/20 05:25 07/23/20 06:00 Lovenox 1 mg/kg (120 mg) 07/23/20 05:26 120 mg SUBCUT Administration Q12H STA Iopamidol 100 ml 07/23/20 06:30 07/23/20 06:30 Isovue Multipack-370 (76%) IVPUSH 07/23/20 06:31 100 ml ONETIME STA Administration Warfarin Sodium 10 mg 07/23/20 14:00 07/23/20 14:10 Coumadin PO 07/23/20 14:01 10 mg DAILY@1400 ONE Administration Sepsis Event Note (ED) - Evaluation Sepsis Screening Result: No Definite Risk - Focused Exam Vital Signs: Vital Signs Pulse Resp BP Pulse Ox 07/23/20 05:52 83 18 123/88 95 - My Orders Last 24 Hours: My Active Orders 07/23/20 04:34 CTA Abd Pelv w Cont [CT] Stat - Assessment/Plan Last 24 Hours: My Active Orders 07/23/20 04:34 CTA Abd Pelv w Cont [CT] Stat
[2020-07-23] MEDS ORDERED: Iopamidol 755 MG/ML 500 ML Multipack Bottle IVPUSH STA (06:30)
--- NOTE | 2020-07-23 07:20 | CT ---
INDICATION: Extensive bilateral lower extremity DVT. Evaluate for pulmonary embolus and extent of clot burden in the IVC, etc. COMPARISON: None TECHNIQUE: CT examination of the chest, abdomen and pelvis was performed following the uneventful intravenous administration of under cc of Isovue 370. Thin section axial images were obtained from the thoracic inlet through the pubic symphysis. Oral contrast was not administered. Sagittal and coronal reformatted imaging was performed. Please note that all CT scans at this facility use dose modulation, iterative reconstruction, and/or weight-based dosing when appropriate to reduce radiation dose to as low as reasonably achievable. FINDINGS: CHEST: The heart size is normal. There is no mediastinal or hilar adenopathy or mass. A high clot burden pulmonary embolus is noted. There is evidence of right heart strain. The RV to LV ratio is 1.1 with greater than 0.9 considered indicative of right heart strain. The lung windows show areas of atelectasis but are otherwise unremarkable. There is no pleural effusion or pneumothorax. ABDOMEN AND PELVIS: LIVER/BILIARY SYSTEM:Hepatic steatosis. No focal mass or biliary ductal dilatation.The gallbladder appears normal ADRENALS: Normal KIDNEYS, URETERS and BLADDER:The kidneys appear normal. No visible mass, calculus or hydronephrosis. The ureters and bladder as visualized appear normal. SPLEEN:Normal appearance. PANCREAS: Appears normal. RETROPERITONEUM and MESENTERY: There is no mass, adenopathy or aortic aneurysm. GASTROINTESTINAL SYSTEM: There is no evidence of diverticulitis, colitis, mechanical obstruction, or appendicitis. The small bowel as visualized appears normal. PELVIS: No mass, adenopathy or free fluid. OSSEOUS STRUCTURES and ABDOMINAL WALL: There is an age-appropriate appearance of the osseous structures.No significant abdominal wall defect. OTHER: As this study was designed as an arteriogram, the venous structures of the retroperitoneum are not specifically studied regarding the clinical question of clot burden. There is some prominence of the common femoral veins especially on the left which probably represents the clot visible on the ultrasound. However, I do not fully are formally evaluate the venous structures of the abdomen and pelvis on this study. IMPRESSION: 1. CHEST: High clot burden pulmonary embolus. There is evidence of right heart strain with an RV to LV ratio of 1.1. Greater than 0.9 is indicative of right heart strain. Patchy atelectasis. 2. ABDOMEN AND PELVIS: No significant appearing findings. There is no pelvic mass to block the outflow of the venous structures of the legs 3. VENOUS SYSTEM: Not well evaluated as this is a pulmonary arteriogram and not a venogram. There is clot identified in the common femoral veins as noted on the ultrasound. I cannot accurately evaluate the deep venous system elsewhere in the abdomen and pelvis on this study Please note that all CT scans at this facility use dose modulation, iterative reconstruction, and/or weight-based dosing when appropriate to reduce radiation dose to as low as reasonably achievable. Dictated by Hussain Hernandez MD @ Jul 23 2020 6:58AM Signed by Dr. Hussain Hernandez @ Jul 23 2020 7:19AM
[2020-07-23] MEDS ORDERED: Ondansetron 4 MG/2 ML SDV IVPUSH PRN (09:05)
[2020-07-23] MEDS ORDERED: Acetaminophen 325 MG Tab PO PRN (09:05)
--- NOTE | 2020-07-23 09:13 | PCM.HP.2 ---
H&P History of Present Illness - General Date of Service: 07/23/20 Admit Problem/Dx: Admission Diagnosis/Problem Admission Diagnosis/Problem Pulmonary embolism Source of Information: Patient History Limitations: Reports: No Limitations - History of Present Illness Initial Comments - Free Text/Narative: 55-year-old male presents with pain in his right leg for the past 2 days. 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 He reports feeling a "pop" in his right leg and started feeling pain moving up his leg similar to his prior DVT which prompted him to go to the ER. He reports having extensive work-up when living in [place] for his recurrent DVT but reports no cause was found. Patient reports being warfarin in the past but stopped taking his medications as he cou ld not afford them. He was last on warfarin approximately 6 years ago. He denies any family history of bleeding or clotting disorders. Denies any history of cancer. Reports smoking tobacco 1 pack per day, occasional alcohol use and no illicit drug use. He denies any fevers, chills, sore throat, bloody cough, nausea, vomiting, SOB, chest pain, abdominal pain, diarrhea, blood in stool, blood in urine, numbness or tingling in extremities. In the ER, WBC 13, 000, CMP unremarkable and INR 1.05. Bilateral LE ultrasound showed extensive bilateral DVT extending from common femoral veins to anterior t ibial veins. CT chest angio showed high burden pulmonary embolism with evidence of right heart strain. Patient given Lovenox 120 mg subcut. Patient is hemodynamically stable at this time. He was admitted for further evaluation and treatment. right leg Pain Score (Numeric/FACES): 9 - Related Data Allergies/Adverse Reactions: Allergies Allergy/AdvReac Type Severity Reaction Status Date / Time Penicillins Allergy Hives Verified 07/23/20 09:10 Home Medications: Home Meds . [No Known Home Meds] 07/23/20 [History] Past Medical History HEENT History: Reports: None Cardiovascular History: Reports: None Respiratory History: Reports: None Gastrointestinal History: Reports: None Genitourinary History: Reports: None Musculoskeletal History: Reports: None Neurological History: Reports: None Psychiatric History: Reports: None Endocrine/Metabolic History: Reports: None Insulin Pump Model and Frame Bender: None Hematologic History: Reports: Other (See Below) Other Hematologic History: DVT in left leg in 2010 Immunologic History: Reports: None Oncologic (Cancer) History: Reports: None Dermatologic History: Reports: None - Infectious Disease History Infectious Disease History: Reports: None - Past Surgical History Head Surgeries/Procedures: Reports: None HEENT Surgical History: Reports: None Cardiovascular Surgical History: Reports: None Respiratory Surgical History: Reports: None GI Surgical History: Reports: None Male Surgical History: Reports: None Endocrine Surgical History: Reports: None Neurological Surgical History: Reports: None Musculoskeletal Surgical History: Reports: None Oncologic Surgical History: Reports: None Dermatological Surgical History: Reports: None Social & Family History - Family History Family Medical History: Noncontributory - Tobacco Use Tobacco Use Status *Q: Current Every Day Tobacco User Years of Tobacco use: 30 Packs/Tins Daily: 0.5 - Caffeine Use Caffeine Use: Reports: Coffee - Recreational Drug Use Recreational Drug Use: No H&P Review of Systems - Review of Systems: Review Of Systems: Comprehensive ROS is negative, except as noted in HPI. Exam - Exam Exam: See Below - Vital Signs Vital Signs: Last Vital Signs Temp 36.1 C 07/23/20 03:20 Pulse 83 07/23/20 05:52 Resp 18 07/23/20 05:52 BP 123/88 07/23/20 05:52 Pulse Ox 95 07/23/20 05:52 Weight: 117.934 kg - Exam General: Alert, Oriented, Cooperative, Other (No distress.) HEENT: Conjunctiva Clear, EOMI, Hearing Intact, Pupils Equal, Pupils Reactive Neck: Supple, Trachea Midline Lungs: Clear to Auscultation, Normal Respiratory Effort Cardiovascular: Regular Rate, Regular Rhythm GI/Abdominal Exam: Normal Bowel Sounds, Soft, Non-Tender, No Distention Extremities: Normal Inspection, No Pedal Edema, Normal Capillary Refill, Other (mild pain over calf in RLE.) Peripheral Pulses: 2+: Radial (L), Radial (R), Dorsalis Pedis (L), Dorsalis Pedis (R) Skin: Warm, Dry, Intact Neurological: Cranial Nerves Intact, Strength Equal Bilateral, Normal Speech, Normal Tone Neuro Extensive - Mental Status: Alert, Oriented x3, Normal Mood/Affect Psychiatric: Alert, Normal Affect, Normal Mood - Patient Data Lab Results Last 24 hrs: Laboratory Results - last 24 hr 11/06/20 11/06/20 11/06/20 Range/Units 03:40 03:40 03:40 WBC 13.00 H (4.0-11.0) K/uL RBC 4.84 (4.50-5.90) M/uL Hgb 14.8 (13.0-17.0) g/dL Hct 43.7 (38.0-50.0) % MCV 90.3 (80.0-98.0) fL MCH 30.6 (27.0-32.0) pg MCHC 33.9 (31.0-37.0) g/dL RDW Std Deviation 45.5 (28.0-62.0) fl RDW Coeff of Clara 14 (11.0-15.0) % Plt Count 149 L (150-400) K/uL MPV 10.60 (7.40-12.00) fL Neut % (Auto) 70.9 (48.0-80.0) % Lymph % (Auto) 17.8 (16.0-40.0) % [place] % (Auto) 7.1 (0.0-15.0) % Eos % (Auto) 4.0 (0.0-7.0) % Baso % (Auto) 0.2 (0.0-1.5) % Neut # (Auto) 9.2 H (1.4-5.7) K/uL Lymph # (Auto) 2.3 (0.6-2.4) K/uL [place] # (Auto) 0.9 H (0.0-0.8) K/uL Eos # (Auto) 0.5 (0.0-0.7) K/uL Baso # (Auto) 0.0 (0.0-0.1) K/uL Nucleated RBC % 0.0 /100WBC Nucleated RBCs # 0 K/uL INR 1.05 Sodium 139 (136-148) mmol/L Potassium 4.6 (3.5-5.1) mmol/L Chloride 103 (98-107) mmol/L Carbon Dioxide 26.2 (21.0-32.0) mmol/L BUN 21 H (7.0-18.0) mg/dL Creatinine 1.1 (0.8-1.3) mg/dL Est Cr Clr Drug Dosing 100.56 mL/min Estimated GFR (MDRD) > 60.0 ml/min Glucose 119 H (74-106) mg/dL Calcium 8.9 (8.5-10.1) mg/dL SARS-CoV-2 RNA (TUYET) (NEGATIVE) 07/23/20 Range/Units 03:40 WBC (4.0-11.0) K/uL RBC (4.50-5.90) M/uL Hgb (13.0-17.0) g/dL Hct (38.0-50.0) % MCV (80.0-98.0) fL MCH (27.0-32.0) pg MCHC (31.0-37.0) g/dL RDW Std Deviation (28.0-62.0) fl RDW Coeff of Clara (11.0-15.0) % Plt Count (150-400) K/uL MPV (7.40-12.00) fL Neut % (Auto) (48.0-80.0) % Lymph % (Auto) (16.0-40.0) % [place] % (Auto) (0.0-15.0) % Eos % (Auto) (0.0-7.0) % Baso % (Auto) (0.0-1.5) % Neut # (Auto) (1.4-5.7) K/uL Lymph # (Auto) (0.6-2.4) K/uL [place] # (Auto) (0.0-0.8) K/uL Eos # (Auto) (0.0-0.7) K/uL Baso # (Auto) (0.0-0.1) K/uL Nucleated RBC % /100WBC Nucleated RBCs # K/uL INR Sodium (136-148) mmol/L Potassium (3.5-5.1) mmol/L Chloride (98-107) mmol/L Carbon Dioxide (21.0-32.0) mmol/L BUN (7.0-18.0) mg/dL Creatinine (0.8-1.3) mg/dL Est Cr Clr Drug Dosing mL/min Estimated GFR (MDRD) ml/min Glucose (74-106) mg/dL Calcium (8.5-10.1) mg/dL SARS-CoV-2 RNA (TUYET) NEGATIVE (NEGATIVE) Result Diagrams: 07/23/20 03:40 07/23/20 03:40 Sepsis Event Note - Evaluation Sepsis Screening Result: No Definite Risk - Focused Exam Vital Signs: Vital Signs Temp Pulse Resp BP Pulse Ox 07/23/20 05:52 83 18 123/88 95 07/23/20 04:30 94 18 131/93 H 95 07/23/20 03:20 36.1 C 94 18 134/89 97 - Problem List (1) Pulmonary embolism SNOMED Code(s): 45566162 ICD Code: I26.99 - OTHER PULMONARY EMBOLISM WITHOUT ACUTE COR PULMONALE Status: Acute Current Visit: Yes (2) DVT (deep venous thrombosis) SNOMED Code(s): 863286212 ICD Code: I82.409 - ACUTE EMBOLISM AND THOMBOS UNSP DEEP VN UNSP LOWER EXTREMITY Status: Acute Current Visit: Yes (3) Tobacco abuse disorder SNOMED Code(s): 258324347 ICD Code: Z72.0 - TOBACCO USE Status: Acute Current Visit: No Problem List Initiated/Reviewed/Updated: Yes Orders Last 24hrs: Active Orders 24 hr Category Date Time Status Patient Status [ADT] Routine ADT 07/23/20 07:37 Active EKG 12 Lead [EKG Documentation Completion] [RC] STAT Care 07/23/20 06:41 Active Oxygen Therapy [RC] PRN Care 07/23/20 09:05 Ordered Telemetry Monitoring [Cardiac Monitoring] [RC] . Care 07/23/20 09:06 Ordered DIRECTED Up ad Dolly [RC] ASDIRECTED Care 07/23/20 09:05 Ordered VTE/DVT Education [RC] PER UNIT ROUTINE Care 07/23/20 09:05 Ordered Vital Signs [RC] Q4H Care 07/23/20 09:05 Ordered Regular Diet [DIET] Diet 07/23/20 Breakfast Ordered CTA Abd Pelv w Cont [CT] Stat Exams 07/23/20 04:34 Taken CBC WITH AUTO DIFF [HEME] AM Lab 07/24/20 05:11 Ordered COMPREHENSIVE METABOLIC PN,CMP [CHEM] AM Lab 07/24/20 05:11 Ordered Acetaminophen [TylenoL] Med 07/23/20 09:05 Ordered 650 mg PO Q4H PRN Ondansetron [Zofran] Med 07/23/20 09:05 Ordered 4 mg IVPUSH Q4H PRN Resuscitation Status Routine Resus Stat 07/23/20 09:05 Ordered Medication Orders Acetaminophen (Tylenol) 650 mg PO Q4H PRN PRN Reason: Pain (Mild 1-3)/fever Ondansetron HCl (Zofran) 4 mg IVPUSH Q4H PRN PRN Reason: Nausea Assessment/Plan Comment:: Assessment and Plan: 1. Acute bilateral lower extremity DVT and pulmonary embolism: - Admit to med/surg. Patient on telemetry and is hemodynamically stable at this time. Will closely monitor vital signs. Patient started on lovenox 120 mg BID and started on warfarin. Will order ECHO. - CT chest angio showed high clot burden PE with evidence of right heart strain. - Bilateral lower extremity U/S showed extensive DVT of both lower extremities extending from common femoral veins to anterior tibial veins.
[2020-07-23] MEDS ORDERED: Warfarin 10 MG Tab PO ONE (14:00)
[2020-07-23] MEDS: Enoxaparin 150 MG/1 ML Syringe SUBCUT SCH (18:15)
[2020-07-24] MEDS: Enoxaparin 150 MG/1 ML Syringe SUBCUT SCH ×2 (05:29→18:09)
[2020-07-24 06:46] LABS: BLOOD UREA NITROGEN,BUN 16 mg/dL (7.0-18.0); CARBON DIOXIDE,CO2 25.1 mmol/L (21.0-32.0); CHLORIDE,CL 104 mmol/L (98-107); GLUCOSE RANDOM 99 mg/dL (74-106); POTASSIUM,K 4.1 mmol/L (3.5-5.1); SODIUM,NA 139 mmol/L (136-148)
--- NOTE | 2020-07-24 09:31 | PCM.PN ---
- General Info Date of Service: 07/24/20 Subjective Update: No complaints at bedside this AM. Tolerating oral diet. Denies any SOB, chest pain, fevers, or chills. - Patient Data Vitals - Most Recent: Last Vital Signs Temp 36.8 C 07/24/20 04:00 Pulse 89 07/24/20 04:00 Resp 18 07/24/20 04:00 BP 108/72 07/24/20 04:00 Pulse Ox 95 07/24/20 04:00 Weight - Most Recent: 117.934 kg I&O - Last 24 Hours: Intake & Output 07/23/20 07/24/20 07/24/20 22:59 06:59 14:59 Intake Total 800 900 Output Total 500 550 Balance 300 350 Lab Results Last 24 Hours: Laboratory Results - last 24 hr 07/24/20 07/24/20 07/24/20 Range/Units 05:14 05:14 05:14 WBC 11.79 H (4.0-11.0) K/uL RBC 4.76 (4.50-5.90) M/uL Hgb 14.0 (13.0-17.0) g/dL Hct 43.4 (38.0-50.0) % MCV 91.2 (80.0-98.0) fL MCH 29.4 (27.0-32.0) pg MCHC 32.3 (31.0-37.0) g/dL RDW Std Deviation 45.1 (28.0-62.0) fl RDW Coeff of Clara 14 (11.0-15.0) % Plt Count 179 (150-400) K/uL MPV 10.70 (7.40-12.00) fL Neut % (Auto) 66.5 (48.0-80.0) % Lymph % (Auto) 20.4 (16.0-40.0) % [place] % (Auto) 8.6 (0.0-15.0) % Eos % (Auto) 4.2 (0.0-7.0) % Baso % (Auto) 0.3 (0.0-1.5) % Neut # (Auto) 7.9 H (1.4-5.7) K/uL Lymph # (Auto) 2.4 (0.6-2.4) K/uL [place] # (Auto) 1.0 H (0.0-0.8) K/uL Eos # (Auto) 0.5 (0.0-0.7) K/uL Baso # (Auto) 0.0 (0.0-0.1) K/uL Nucleated RBC % 0.0 /100WBC Nucleated RBCs # 0 K/uL INR 1.09 Sodium 139 (136-148) mmol/L Potassium 4.1 (3.5-5.1) mmol/L Chloride 104 (98-107) mmol/L Carbon Dioxide 25.1 (21.0-32.0) mmol/L BUN 16 (7.0-18.0) mg/dL Creatinine 1.0 (0.8-1.3) mg/dL Est Cr Clr Drug Dosing 110.62 mL/min Estimated GFR (MDRD) > 60.0 ml/min Glucose 99 (74-106) mg/dL Calcium 8.5 (8.5-10.1) mg/dL Total Bilirubin 0.5 (0.2-1.0) mg/dL AST 20 (15-37) IU/L ALT 39 (14-63) IU/L Alkaline Phosphatase 64 (46-116) U/L Total Protein 6.6 (6.4-8.2) g/dL Albumin 3.4 (3.4-5.0) g/dL Globulin 3.2 (2.6-4.0) g/dL Albumin/Globulin Ratio 1.1 (0.9-1.6) Med Orders - Current: Current Medications Acetaminophen (Tylenol) 650 mg PO Q4H PRN PRN Reason: Pain (Mild 1-3)/fever Enoxaparin Sodium (Lovenox) 120 mg SUBCUT Q12H [facility] Last Admin: 07/24/20 05:29 Dose: 120 mg Documented by: Ondansetron HCl (Zofran) 4 mg IVPUSH Q4H PRN PRN Reason: Nausea Warfarin Sodium (Coumadin Ask) 1 each PO DAILY@1400 [facility] Last Admin: 07/23/20 14:11 Dose: Not Given Documented by: Discontinued Medications Enoxaparin Sodium (Lovenox) 120 mg 1 mg/kg (120 mg) SUBCUT Q12H [facility] Stop: 07/23/20 05:26 Last Admin: 07/23/20 06:00 Dose: 120 mg Documented by: Iopamidol (Isovue Multipack-370 (76%)) 100 ml IVPUSH ONETIME STA Stop: 07/23/20 06:31 Last Admin: 07/23/20 06:30 Dose: 100 ml Documented by: Warfarin Sodium (Coumadin) 10 mg PO DAILY@1400 [facility] Stop: 07/23/20 14:01 Last Admin: 07/23/20 14:10 Dose: 10 mg Documented by: - Exam General: Alert, Oriented, Cooperative, No Acute Distress Lungs: Clear to Auscultation, Normal Respiratory Effort Cardiovascular: Regular Rate, Regular Rhythm GI/Abdominal Exam: Normal Bowel Sounds, Soft, Non-Tender, No Distention Extremities: Normal Inspection, No Pedal Edema Sepsis Event Note - Evaluation Sepsis Screening Result: No Definite Risk - Focused Exam Vital Signs: Vital Signs Temp Pulse Resp BP Pulse Ox 07/24/20 04:00 36.8 C 89 18 108/72 95 07/24/20 00:00 37.1 C 85 18 117/66 95 - Problem List & Annotations (1) Pulmonary embolism SNOMED Code(s): 51200330 Code(s): I26.99 - OTHER PULMONARY EMBOLISM WITHOUT ACUTE COR PULMONALE Status: Acute Current Visit: Yes (2) DVT (deep venous thrombosis) SNOMED Code(s): 336070130 Code(s): I82.409 - ACUTE EMBOLISM AND THOMBOS UNSP DEEP VN UNSP LOWER EXTREMITY Status: Acute Current Visit: Yes (3) Tobacco abuse disorder SNOMED Code(s): 043212555 Code(s): Z72.0 - TOBACCO USE Status: Acute Current Visit: No - Problem List Review Problem List Initiated/Reviewed/Updated: Yes - My Orders Last 24 Hours: My Active Orders 07/23/20 09:05 Oxygen Therapy [RC] PRN Up ad Dolly [RC] ASDIRECTED VTE/DVT Education [RC] PER UNIT ROUTINE Vital Signs [RC] Q4H Acetaminophen [TylenoL] 650 mg PO Q4H PRN Ondansetron [Zofran] 4 mg IVPUSH Q4H PRN Resuscitation Status Routine 07/23/20 09:06 Telemetry Monitoring [Cardiac Monitoring] [RC] Q8H 07/25/20 05:11 CBC WITH AUTO DIFF [HEME] AM CMP [COMPREHENSIVE METABOLIC PN,CMP] [CHEM] AM - Plan Plan:: Assessment and Plan: 1. Acute bilateral lower extremity DVT and pulmonary embolism: - Hemodynamically stable at this time. Continue to closely monitor vital signs. Patient is on warfarin and bridging with lovenox 120 mg BID. ECHO is pending. - CT chest angio showed high clot burden PE with evidence of right heart strain. - Bilateral lower extremity U/S showed extensive DVT of both lower extremities extending from common femoral veins to anterior tibial veins.
[2020-07-24] MEDS ORDERED: Warfarin 10 MG Tab PO ONE (14:30)
[2020-07-25] MEDS: Enoxaparin 150 MG/1 ML Syringe SUBCUT SCH ×2 (06:17→17:47)
[2020-07-25 07:03] LABS: BLOOD UREA NITROGEN,BUN 13 mg/dL (7.0-18.0); CARBON DIOXIDE,CO2 22.9 mmol/L (21.0-32.0); CHLORIDE,CL 104 mmol/L (98-107); GLUCOSE RANDOM 101 mg/dL (74-106); SODIUM,NA 138 mmol/L (136-148)
[2020-07-25] MEDS ORDERED: Warfarin 10 MG Tab PO ONE (14:00)
--- NOTE | 2020-07-25 14:58 | PCM.PN ---
- General Info Date of Service: 07/25/20 Admission Dx/Problem (Free Text): Admission Diagnosis/Problem Admission Diagnosis/Problem Pulmonary embolism Subjective Update: No complaints at bedside this AM. Tolerating oral diet. Denies any SOB, chest pain, fevers, or chills. slight pain in his calf upon ambulation, improved than before Functional Status: Reports: Pain Controlled, Tolerating Diet, Ambulating, Urinating - Review of Systems General: Denies: Fever, Weakness, Fatigue Pulmonary: Denies: Shortness of Breath, Pleuritic Chest Pain Cardiovascular: Denies: Chest Pain, Palpitations, Dyspnea on Exertion Gastrointestinal: Denies: Abdominal Pain, Constipation, Decreased Appetite Genitourinary: Denies: Dysuria, Frequency, Burning Musculoskeletal: Denies: Neck Pain, Shoulder Pain, Arm Pain - Patient Data Vitals - Most Recent: Last Vital Signs Temp 36.8 C 07/25/20 12:00 Pulse 86 07/25/20 12:00 Resp 14 07/25/20 12:00 BP 117/80 07/25/20 12:00 Pulse Ox 96 07/25/20 12:00 Weight - Most Recent: 117.934 kg I&O - Last 24 Hours: Intake & Output 07/24/20 07/25/20 07/25/20 22:59 06:59 14:59 Intake Total 2290 975 Output Total 200 525 Balance 2090 450 Lab Results Last 24 Hours: Laboratory Results - last 24 hr 07/25/20 07/25/20 07/25/20 Range/Units 05:45 05:45 05:45 WBC 11.03 H (4.0-11.0) K/uL RBC 4.63 (4.50-5.90) M/uL Hgb 13.6 (13.0-17.0) g/dL Hct 41.5 (38.0-50.0) % MCV 89.6 (80.0-98.0) fL MCH 29.4 (27.0-32.0) pg MCHC 32.8 (31.0-37.0) g/dL RDW Std Deviation 43.9 (28.0-62.0) fl RDW Coeff of Clara 13 (11.0-15.0) % Plt Count 209 (150-400) K/uL MPV 10.90 (7.40-12.00) fL Neut % (Auto) 65.8 (48.0-80.0) % Lymph % (Auto) 21.0 (16.0-40.0) % [place] % (Auto) 9.5 (0.0-15.0) % Eos % (Auto) 3.4 (0.0-7.0) % Baso % (Auto) 0.3 (0.0-1.5) % Neut # (Auto) 7.3 H (1.4-5.7) K/uL Lymph # (Auto) 2.3 (0.6-2.4) K/uL [place] # (Auto) 1.1 H (0.0-0.8) K/uL Eos # (Auto) 0.4 (0.0-0.7) K/uL Baso # (Auto) 0.0 (0.0-0.1) K/uL Nucleated RBC % 0.0 /100WBC Nucleated RBCs # 0 K/uL INR 1.25 Sodium 138 (136-148) mmol/L Potassium 4.0 (3.5-5.1) mmol/L Chloride 104 (98-107) mmol/L Carbon Dioxide 22.9 (21.0-32.0) mmol/L BUN 13 (7.0-18.0) mg/dL Creatinine 0.8 (0.8-1.3) mg/dL Est Cr Clr Drug Dosing 138.27 mL/min Estimated GFR (MDRD) > 60.0 ml/min Glucose 101 (74-106) mg/dL Calcium 8.7 (8.5-10.1) mg/dL Total Bilirubin 0.4 (0.2-1.0) mg/dL AST 23 (15-37) IU/L ALT 44 (14-63) IU/L Alkaline Phosphatase 62 (46-116) U/L Total Protein 6.7 (6.4-8.2) g/dL Albumin 3.2 L (3.4-5.0) g/dL Globulin 3.5 (2.6-4.0) g/dL Albumin/Globulin Ratio 0.9 (0.9-1.6) Med Orders - Current: Current Medications Acetaminophen (Tylenol) 650 mg PO Q4H PRN PRN Reason: Pain (Mild 1-3)/fever Enoxaparin Sodium (Lovenox) 120 mg SUBCUT Q12H [facility] Last Admin: 07/25/20 06:17 Dose: 120 mg Documented by: Ondansetron HCl (Zofran) 4 mg IVPUSH Q4H PRN PRN Reason: Nausea Warfarin Sodium (Coumadin Ask) 1 each PO DAILY@1400 [facility] Last Admin: 07/25/20 14:43 Dose: 1 each Documented by: Discontinued Medications Enoxaparin Sodium (Lovenox) 120 mg 1 mg/kg (120 mg) SUBCUT Q12H [facility] Stop: 07/23/20 05:26 Last Admin: 07/23/20 06:00 Dose: 120 mg Documented by: Iopamidol (Isovue Multipack-370 (76%)) 100 ml IVPUSH ONETIME STA Stop: 07/23/20 06:31 Last Admin: 07/23/20 06:30 Dose: 100 ml Documented by: Warfarin Sodium (Coumadin) 10 mg PO DAILY@1400 ONE Stop: 07/23/20 14:01 Last Admin: 07/23/20 14:10 Dose: 10 mg Documented by: Warfarin Sodium (Coumadin) 10 mg PO DAILY@1430 [facility] Stop: 07/24/20 14:31 Last Admin: 07/24/20 14:21 Dose: 10 mg Documented by: Warfarin Sodium (Coumadin) 10 mg PO DAILY@1400 [facility] Stop: 07/25/20 14:01 Last Admin: 07/25/20 14:42 Dose: 10 mg Documented by: - Exam Quality Assessment: No: Supplemental Oxygen General: Alert, Oriented Neck: Supple Lungs: Clear to Auscultation, Normal Respiratory Effort Cardiovascular: Regular Rate, Regular Rhythm GI/Abdominal Exam: Normal Bowel Sounds, Soft, Non-Tender Extremities: Normal Inspection, Normal Range of Motion, Non-Tender, Limited Range of Motion. No: No Pedal Edema, Pedal Edema, Joint Swelling, Leg Pain, Increased Warmth, Mottled, Pallor, Redness, Other Sepsis Event Note - Evaluation Sepsis Screening Result: No Definite Risk - Focused Exam Vital Signs: Vital Signs Temp Pulse Resp BP Pulse Ox 07/25/20 12:00 36.8 C 86 14 117/80 96 07/25/20 07:49 37.2 C 83 16 107/59 L 95 07/25/20 04:00 36.3 C 85 16 117/80 92 L - Problem List & Annotations (1) DVT (deep venous thrombosis) SNOMED Code(s): 333588150 Code(s): I82.409 - ACUTE EMBOLISM AND THOMBOS UNSP DEEP VN UNSP LOWER EXTREMITY Status: Acute Current Visit: Yes (2) Pulmonary embolism SNOMED Code(s): 12314264 Code(s): I26.99 - OTHER PULMONARY EMBOLISM WITHOUT ACUTE COR PULMONALE Status: Acute Current Visit: Yes (3) History of DVT in adulthood SNOMED Code(s): 792922601 Code(s): Z86.718 - PERSONAL HISTORY OF OTHER VENOUS THROMBOSIS AND EMBOLISM Status: Acute Current Visit: No (4) History of pulmonary embolus (PE) SNOMED Code(s): 038759448 Code(s): Z86.711 - PERSONAL HISTORY OF PULMONARY EMBOLISM Status: Acute Current Visit: No (5) Tobacco abuse counseling SNOMED Code(s): 631960831, 804497900, 003924240 Code(s): Z71.6 - TOBACCO ABUSE COUNSELING Status: Acute Current Visit: No - Problem List Review Problem List Initiated/Reviewed/Updated: Yes - My Orders Last 24 Hours: My Active Orders 07/25/20 11:06 Communication Order [RC] PRN - Plan Plan:: Assessment and Plan: 1. Acute bilateral lower extremity DVT and pulmonary embolism: - Hemodynamically stable at this time. Continue to closely monitor vital signs. Patient is on warfarin and bridging with lovenox 120 mg BID. INR still sub- therapeutic, ECHO is pending. - CT chest angio showed high clot burden PE with evidence of right heart strain. - Bilateral lower extremity U/S showed extensive DVT of both lower extremities extending from common femoral veins to anterior tibial veins, _ Huge clot burden may need thrombectomy/ thrombolysis , so far there is improvement, hemodynamically stable, Will try to consult IR at [facility] in AM for recommendations
[2020-07-26] MEDS: Enoxaparin 150 MG/1 ML Syringe SUBCUT SCH (05:31)
[2020-07-26 06:29] LABS: BLOOD UREA NITROGEN,BUN 14 mg/dL (7.0-18.0); CARBON DIOXIDE,CO2 25.1 mmol/L (21.0-32.0); CHLORIDE,CL 104 mmol/L (98-107); GLUCOSE RANDOM 104 mg/dL (74-106); SODIUM,NA 138 mmol/L (136-148)
--- NOTE | 2020-07-26 08:45 | PCM.PN ---
- General Info Date of Service: 07/26/20 Subjective Update: Tolerating oral diet and having bowel movements. Ambulating without difficulty. Denies any SOB, cough or chest pain. - Patient Data Vitals - Most Recent: Last Vital Signs Temp 36.7 C 07/26/20 08:00 Pulse 89 07/26/20 08:00 Resp 15 07/26/20 08:00 BP 111/69 07/26/20 08:00 Pulse Ox 94 L 07/26/20 08:00 Weight - Most Recent: 117.934 kg I&O - Last 24 Hours: Intake & Output 07/25/20 07/26/20 07/26/20 22:59 06:59 14:59 Intake Total 600 Output Total 450 Balance 150 Lab Results Last 24 Hours: Laboratory Results - last 24 hr 07/26/20 07/26/20 07/26/20 Range/Units 05:35 05:35 05:35 WBC 8.98 (4.0-11.0) K/uL RBC 4.53 (4.50-5.90) M/uL Hgb 13.1 (13.0-17.0) g/dL Hct 40.8 (38.0-50.0) % MCV 90.1 (80.0-98.0) fL MCH 28.9 (27.0-32.0) pg MCHC 32.1 (31.0-37.0) g/dL RDW Std Deviation 44.4 (28.0-62.0) fl RDW Coeff of Clara 13 (11.0-15.0) % Plt Count 240 (150-400) K/uL MPV 10.60 (7.40-12.00) fL Neut % (Auto) 61.6 (48.0-80.0) % Lymph % (Auto) 25.2 (16.0-40.0) % [place] % (Auto) 8.7 (0.0-15.0) % Eos % (Auto) 4.3 (0.0-7.0) % Baso % (Auto) 0.2 (0.0-1.5) % Neut # (Auto) 5.5 (1.4-5.7) K/uL Lymph # (Auto) 2.3 (0.6-2.4) K/uL [place] # (Auto) 0.8 (0.0-0.8) K/uL Eos # (Auto) 0.4 (0.0-0.7) K/uL Baso # (Auto) 0.0 (0.0-0.1) K/uL Nucleated RBC % 0.0 /100WBC Nucleated RBCs # 0 K/uL INR 1.64 Sodium 138 (136-148) mmol/L Potassium 4.0 (3.5-5.1) mmol/L Chloride 104 (98-107) mmol/L Carbon Dioxide 25.1 (21.0-32.0) mmol/L BUN 14 (7.0-18.0) mg/dL Creatinine 0.9 (0.8-1.3) mg/dL Est Cr Clr Drug Dosing 122.91 mL/min Estimated GFR (MDRD) > 60.0 ml/min Glucose 104 (74-106) mg/dL Calcium 8.7 (8.5-10.1) mg/dL Phosphorus 3.4 (2.6-4.7) mg/dL Magnesium 2.1 (1.8-2.4) mg/dL Med Orders - Current: Current Medications Acetaminophen (Tylenol) 650 mg PO Q4H PRN PRN Reason: Pain (Mild 1-3)/fever Last Admin: 07/25/20 20:40 Dose: 650 mg Documented by: Enoxaparin Sodium (Lovenox) 120 mg SUBCUT Q12H [facility] Last Admin: 07/26/20 05:31 Dose: 120 mg Documented by: Ondansetron HCl (Zofran) 4 mg IVPUSH Q4H PRN PRN Reason: Nausea Warfarin Sodium (Coumadin Ask) 1 each PO DAILY@1400 [facility] Last Admin: 07/25/20 14:43 Dose: 1 each Documented by: Discontinued Medications Enoxaparin Sodium (Lovenox) 120 mg 1 mg/kg (120 mg) SUBCUT Q12H STA Stop: 07/23/20 05:26 Last Admin: 07/23/20 06:00 Dose: 120 mg Documented by: Iopamidol (Isovue Multipack-370 (76%)) 100 ml IVPUSH ONETIME STA Stop: 07/23/20 06:31 Last Admin: 07/23/20 06:30 Dose: 100 ml Documented by: Warfarin Sodium (Coumadin) 10 mg PO DAILY@1400 ONE Stop: 07/23/20 14:01 Last Admin: 07/23/20 14:10 Dose: 10 mg Documented by: Warfarin Sodium (Coumadin) 10 mg PO DAILY@1430 ONE Stop: 07/24/20 14:31 Last Admin: 07/24/20 14:21 Dose: 10 mg Documented by: Warfarin Sodium (Coumadin) 10 mg PO DAILY@1400 ONE Stop: 07/25/20 14:01 Last Admin: 07/25/20 14:42 Dose: 10 mg Documented by: - Exam General: Alert, Oriented, Cooperative, No Acute Distress Lungs: Clear to Auscultation, Normal Respiratory Effort Cardiovascular: Regular Rate, Regular Rhythm GI/Abdominal Exam: Normal Bowel Sounds, Soft, Non-Tender, No Distention Extremities: Normal Inspection, No Pedal Edema Sepsis Event Note - Evaluation Sepsis Screening Result: No Definite Risk - Focused Exam Vital Signs: Vital Signs Temp Pulse Resp BP Pulse Ox 07/26/20 08:00 36.7 C 89 15 111/69 94 L 07/26/20 03:15 79 125/81 07/26/20 00:00 36.8 C 81 14 94/67 96 - Problem List & Annotations (1) Pulmonary embolism SNOMED Code(s): 48359130 Code(s): I26.99 - OTHER PULMONARY EMBOLISM WITHOUT ACUTE COR PULMONALE Status: Acute Current Visit: Yes (2) DVT (deep venous thrombosis) SNOMED Code(s): 077502405 Code(s): I82.409 - ACUTE EMBOLISM AND THOMBOS UNSP DEEP VN UNSP LOWER EXTREMITY Status: Acute Current Visit: Yes (3) Tobacco abuse disorder SNOMED Code(s): 537219419 Code(s): Z72.0 - TOBACCO USE Status: Acute Current Visit: No - Problem List Review Problem List Initiated/Reviewed/Updated: Yes - Plan Plan:: Assessment and Plan: 1. Acute bilateral lower extremity DVT and pulmonary embolism: - Vitals signs stable. Continue warfarin and bridging with lovenox 120 mg BID. ECHO is pending. Will contact interventional radiology for recommendations. - CT chest angio showed high clot burden PE with evidence of right heart strain. - Bilateral lower extremity U/S showed extensive DVT of both lower extremities extending from common femoral veins to anterior tibial veins,
--- NOTE | 2020-07-26 11:17 | CT ---
INDICATION: Extensive bilateral lower extremity DVT. Evaluate for pulmonary embolus and extent of clot burden in the IVC, etc. COMPARISON: None TECHNIQUE: CT examination of the chest, abdomen and pelvis was performed following the uneventful intravenous administration of under cc of Isovue 370. Thin section axial images were obtained from the thoracic inlet through the pubic symphysis. Oral contrast was not administered. Sagittal and coronal reformatted imaging was performed. Please note that all CT scans at this facility use dose modulation, iterative reconstruction, and/or weight-based dosing when appropriate to reduce radiation dose to as low as reasonably achievable. FINDINGS: CHEST: The heart size is normal. There is no mediastinal or hilar adenopathy or mass. A high clot burden pulmonary embolus is noted. There is evidence of right heart strain. The RV to LV ratio is 1.1 with greater than 0.9 considered indicative of right heart strain. The lung windows show areas of atelectasis but are otherwise unremarkable. There is no pleural effusion or pneumothorax. ABDOMEN AND PELVIS: LIVER/BILIARY SYSTEM:Hepatic steatosis. No focal mass or biliary ductal dilatation.The gallbladder appears normal ADRENALS: Normal KIDNEYS, URETERS and BLADDER:The kidneys appear normal. No visible mass, calculus or hydronephrosis. The ureters and bladder as visualized appear normal. SPLEEN:Normal appearance. PANCREAS: Appears normal. RETROPERITONEUM and MESENTERY: There is no mass, adenopathy or aortic aneurysm. GASTROINTESTINAL SYSTEM: There is no evidence of diverticulitis, colitis, mechanical obstruction, or appendicitis. The small bowel as visualized appears normal. PELVIS: No mass, adenopathy or free fluid. OSSEOUS STRUCTURES and ABDOMINAL WALL: There is an age-appropriate appearance of the osseous structures. No significant abdominal wall defect. OTHER: As this study was designed as an arteriogram, the venous structures of the retroperitoneum are not specifically studied regarding the clinical question of clot burden. There is some prominence of the common femoral veins especially on the left which probably represents the clot visible on the ultrasound. However, I do not fully are formally evaluate the venous structures of the abdomen and pelvis on this study. IMPRESSION: 1. CHEST: High clot burden pulmonary embolus. There is evidence of right heart strain with an RV to LV ratio of 1.1. Greater than 0.9 is indicative of right heart strain. Patchy atelectasis. 2. ABDOMEN AND PELVIS: No significant appearing findings. There is no pelvic mass to block the outflow of the venous structures of the legs 3. VENOUS SYSTEM: Not well evaluated as this is a pulmonary arteriogram and not a venogram. There is clot identified in the common femoral veins as noted on the ultrasound. I cannot accurately evaluate the deep venous system elsewhere in the abdomen and pelvis on this study Please note that all CT scans at this facility use dose modulation, iterative reconstruction, and/or weight-based dosing when appropriate to reduce radiation dose to as low as reasonably achievable. Dictated by Hussain Hernandez MD @ Jul 23 2020 6:58AM ----- ADDENDUM ----- The findings of this report were discussed by myself with Dr. Flores at 7:25 a.m. on July 23, 2020. Dictated by Hussain Hernandez MD @ Jul 23 2020 7:26AM Signed by: Hussain Hernandez MD @07/23/2020 7:27:24 AM (Electronic Signature) RJ/Dictated by: Hussain Hernandez MD @ 07/23/2020 7:31:00 AM Signed by: Hussain Hernandez MD @07/23/2020 7:43:46 AM (Electronic Signature) [facility]ENTER[facility]ao
[2020-07-26 12:36] VITALS: BP 112/75; PULSE 83
--- NOTE | 2020-07-26 13:54 | PCM.DCSUM1 ---
Discharge Summary - Hospital Course Free Text/Narrative:: 55-year-old male admitted for bilateral lower extremity DVT and pulmonary embolism. He has a PMH of recurrent DVT. Patient had been on warfarin in the past, however, discontinued it due to financial situation. He was last on warfarin approximately 6 years ago. On admission, lower extremity doppler U/S showed extensive DVT of bilateral lower extremities extending from common femoral veins to anterior tibial veins. CT chest angio showed high clot burden PE with evidence of right heart strain. Patient was started on warfarin and lovenox 120 mg BID. ECHO was ordered and is currently pending. Patient remained hemodynamically stable and did not require any supplemental oxygen. Interventional radiologist Dr. Trujillo at [facility] in [place], [place] was contacted who recommended IVC filter placement and thrombectomy of lower extremity DVT's. Dr. Trujillo also recommended transitioning patient to heparin drip. As patient last received lovenox on 07/26/20 at 05:30 AM, patient will need to have heparin drip started on 07/26/20 at 17:30. ER physician Dr. Cobian at [facility] in [place], [place] was contacted who agreed to accept patient for transfer. Patient discharged in stable condition via ground ambulance. - Discharge Data Discharge Date: 07/26/20 Discharge Disposition: DC/Tfer to Acute Hospital 02 Condition: Stable - Referral to Home Health Primary Care Physician: PCP None - Discharge Diagnosis/Problem(s) (1) Pulmonary embolism SNOMED Code(s): 96071058 ICD Code: I26.99 - OTHER PULMONARY EMBOLISM WITHOUT ACUTE COR PULMONALE Status: Acute Current Visit: Yes (2) DVT (deep venous thrombosis) SNOMED Code(s): 841089777 ICD Code: I82.409 - ACUTE EMBOLISM AND THOMBOS UNSP DEEP VN UNSP LOWER EXTREMITY Status: Acute Current Visit: Yes (3) Tobacco abuse disorder SNOMED Code(s): 125099292 ICD Code: Z72.0 - TOBACCO USE Status: Acute Current Visit: No - Patient Instructions Diet: Usual Diet as Tolerated Activity: As Tolerated - Discharge Plan *PRESCRIPTION DRUG MONITORING PROGRAM REVIEWED*: Not Applicable *COPY OF PRESCRIPTION DRUG MONITORING REPORT IN PATIENT FERNANDA: Not Applicable Home Medications: Home Meds . [No Known Home Meds] 07/23/20 [History] Oxygen Therapy Mode: Room Air Patient Handouts: Deep Vein Thrombosis, Venous Thromboembolism Prevention Referrals: Gildardo Mccoy MD [Resident] - 08/03/20 2:30 pm - Discharge Summary/Plan Comment DC Time >30 min.: No - Patient Data Vitals - Most Recent: Last Vital Signs Temp 35.8 C L 07/26/20 12:00 Pulse 83 07/26/20 12:00 Resp 18 07/26/20 12:00 BP 112/75 07/26/20 12:00 Pulse Ox 96 07/26/20 12:00 Weight - Most Recent: 117.934 kg I&O - Last 24 hours: Intake & Output 07/25/20 07/26/20 07/26/20 22:59 06:59 14:59 Intake Total 600 Output Total 450 Balance 150 Lab Results - Last 24 hrs: Laboratory Results - last 24 hr 07/26/20 07/26/20 07/26/20 Range/Units 05:35 05:35 05:35 WBC 8.98 (4.0-11.0) K/uL RBC 4.53 (4.50-5.90) M/uL Hgb 13.1 (13.0-17.0) g/dL Hct 40.8 (38.0-50.0) % MCV 90.1 (80.0-98.0) fL MCH 28.9 (27.0-32.0) pg MCHC 32.1 (31.0-37.0) g/dL RDW Std Deviation 44.4 (28.0-62.0) fl RDW Coeff of Clara 13 (11.0-15.0) % Plt Count 240 (150-400) K/uL MPV 10.60 (7.40-12.00) fL Neut % (Auto) 61.6 (48.0-80.0) % Lymph % (Auto) 25.2 (16.0-40.0) % [place] % (Auto) 8.7 (0.0-15.0) % Eos % (Auto) 4.3 (0.0-7.0) % Baso % (Auto) 0.2 (0.0-1.5) % Neut # (Auto) 5.5 (1.4-5.7) K/uL Lymph # (Auto) 2.3 (0.6-2.4) K/uL [place] # (Auto) 0.8 (0.0-0.8) K/uL Eos # (Auto) 0.4 (0.0-0.7) K/uL Baso # (Auto) 0.0 (0.0-0.1) K/uL Nucleated RBC % 0.0 /100WBC Nucleated RBCs # 0 K/uL INR 1.64 Sodium 138 (136-148) mmol/L Potassium 4.0 (3.5-5.1) mmol/L Chloride 104 (98-107) mmol/L Carbon Dioxide 25.1 (21.0-32.0) mmol/L BUN 14 (7.0-18.0) mg/dL Creatinine 0.9 (0.8-1.3) mg/dL Est Cr Clr Drug Dosing 122.91 mL/min Estimated GFR (MDRD) > 60.0 ml/min Glucose 104 (74-106) mg/dL Calcium 8.7 (8.5-10.1) mg/dL Phosphorus 3.4 (2.6-4.7) mg/dL Magnesium 2.1 (1.8-2.4) mg/dL Med Orders - Current: Current Medications Acetaminophen (Tylenol) 650 mg PO Q4H PRN PRN Reason: Pain (Mild 1-3)/fever Last Admin: 07/25/20 20:40 Dose: 650 mg Documented by: Enoxaparin Sodium (Lovenox) 120 mg SUBCUT Q12H [facility] Last Admin: 07/26/20 05:31 Dose: 120 mg Documented by: Ondansetron HCl (Zofran) 4 mg IVPUSH Q4H PRN PRN Reason: Nausea Warfarin Sodium (Coumadin Ask) 1 each PO DAILY@1400 [facility] Last Admin: 07/25/20 14:43 Dose: 1 each Documented by: Discontinued Medications Enoxaparin Sodium (Lovenox) 120 mg 1 mg/kg (120 mg) SUBCUT Q12H STA Stop: 07/23/20 05:26 Last Admin: 07/23/20 06:00 Dose: 120 mg Documented by: Iopamidol (Isovue Multipack-370 (76%)) 100 ml IVPUSH ONETIME STA Stop: 07/23/20 06:31 Last Admin: 07/23/20 06:30 Dose: 100 ml Documented by: Warfarin Sodium (Coumadin) 10 mg PO DAILY@1400 ONE Stop: 07/23/20 14:01 Last Admin: 07/23/20 14:10 Dose: 10 mg Documented by: Warfarin Sodium (Coumadin) 10 mg PO DAILY@1430 ONE Stop: 07/24/20 14:31 Last Admin: 07/24/20 14:21 Dose: 10 mg Documented by: Warfarin Sodium (Coumadin) 10 mg PO DAILY@1400 ONE Stop: 07/25/20 14:01 Last Admin: 07/25/20 14:42 Dose: 10 mg Documented by:
[2020-07-26] MEDS ORDERED: Warfarin 10 MG Tab PO ONE (14:00)
--- NOTE | 2020-07-29 10:10 | ECHO ---
EXAM DATE: 07/23/20 PATIENT'S AGE: 55 The ECHO report has been scanned into [employer] and can be seen in this patient's EMR (Electronic Medical Record) under the REPORTS section. The report has also been scanned into PACS. [facility]
== END 2020-07-26 14:30 | DRG 176 ==
LOC: MW.ED 03:09 → MW.MS 07:36
PROVIDERS: ADMIT Internal Medicine; ATTEND Internal Medicine
DX: I26.99 Other pulmonary embolism without acute cor pulmonale (principal); I82.409 Acute embolism and thrombosis of unspecified deep veins of unspecified lower extremity; Z88.0 Allergy status to penicillin; F17.210 Nicotine dependence, cigarettes, uncomplicated; Z20.828 Contact with and (suspected) exposure to other viral communicable diseases
CPT/HCPCS: 36415; 71275; 71275-26; 74174; 74174-26; 80048; 80053; 83735; 84100; 85025; 85610; 93005; 93010; 93306; 93970; 93970-26; 96372; 99283; 99285-25; A9270-GY; J1650; Q9967; U0002